=== PATIENT | male | born 1970 | race Caucasian/White ===

== ENCOUNTER 2018-09-21 06:08 | Emergency (ER) | payer SELFPAY ==
--- NOTE | 2018-09-21 06:36 | ER ---
Nurse's Notes [facility] Name: Tyler Carson Age: 48 yrs Sex: Male : 1970 Arrival Date: 09/21/2018 Time: 06:13 Bed 19 Private MD: Diagnosis: Dental pain Presentation: 09/21 06:21 Presenting complaint: Patient states: he has had a toothache to left upper jaw for 2 bb days but now it is swollen up into his face and jaw and is very painful pt states he has high blood pressure but does not take his medicine. Transition of care: patient was not received from another setting of care. Onset of symptoms was September 19, 2018. Risk Assessment: Do you want to hurt yourself or someone else? Patient reports no desire to harm self or others. Initial Sepsis Screen: Does the patient meet any 2 criteria? No. Patient's initial sepsis screen is negative. Does the patient have a suspected source of infection? No. Patient's initial sepsis screen is negative. Care prior to arrival: None. 06:21 Method Of Arrival: Ambulatory bb 06:21 Acuity: NISH 4 bb Historical: - Allergies: 06:24 No Known Allergies; bb - Home Meds: 06:24 does not take any [Active]; bb - PMHx: 06:24 Hypertension; Myocardial infarction; bb - PSHx: 06:24 Heart stents; bb - Immunization history:: Adult Immunizations up to date. - Social history:: Smoking status: Patient uses tobacco products, smokes one pack cigarettes per day. Patient uses alcohol, occasionally. - Ebola Screening: : No symptoms or risks identified at this time. Screenin:25 Abuse screen: Denies threats or abuse. Nutritional screening: No deficits noted. bb Tuberculosis screening: No symptoms or risk factors identified. Fall Risk None identified. Assessment: 06:25 General: Appears in no apparent distress. uncomfortable, Behavior is calm, cooperative. bb Pain: Complains of pain in left upper jaw Pain currently is 9 out of 10 on a pain scale. Pain began 2-3 days ago. Neuro: Level of Consciousness is awake, alert, obeys commands, Oriented to person, place, time, situation. Cardiovascular: No deficits noted. Respiratory: Airway is patent Respiratory effort is even, unlabored. GI: No signs and/or symptoms were reported involving the gastrointestinal system. EENT: Reports pain in left upper jaw. Derm: Skin is pink, warm \T\ dry. Musculoskeletal: Circulation, motion, and sensation intact. 06:54 Reassessment: Patient appears in no apparent distress at this time. Patient and/or tl2 family updated on plan of care and expected duration. Pain level reassessed. Patient is alert, oriented x 3, equal unlabored respirations, skin warm/dry/pink. pt verbalized understanding of discharge instructions, need for follow up and prescription usage. MACHINE WIPER aware of pt's elevated BP. No change in disposition. Vital Signs: 06:24 BP 192 / 111; Pulse 66; Resp 16 S; Temp 98.2(O); Pulse Ox 98% on R/A; Weight 70.31 kg bb (R); Height 5 ft. 6 in. (167.64 cm) (R); Pain 9/10; 06:24 Body Mass Index 25.02 (70.31 kg, 167.64 cm) ED Course: 06:13 Patient arrived in ED. 06:15 Mark Pelayo NP is PHCP. pm1 06:15 Jaret Frias MD is Attending Physician. pm1 06:23 Triage completed. bb 06:24 Arm band placed on Patient placed in an exam room, on a stretcher, on pulse oximetry. bb 06:25 Patient has correct armband on for positive identification. Bed in low position. Call bb light in reach. Side rails up X2. 06:54 Ping Coronado RN is Primary Nurse. tl2 06:54 No provider procedures requiring assistance completed. Patient did not have IV access tl2 during this emergency room visit. Administered Medications: No medications were administered Outcome: 06:35 Discharge ordered by . pm1 06:54 Discharged to home ambulatory. tl2 06:54 Condition: stable 06:54 Discharge instructions given to patient, Instructed on discharge instructions, follow up and referral plans. no driving heavy equipment, medication usage, Demonstrated understanding of instructions, follow-up care, medications, Prescriptions given X 2. 06:56 Patient left the ED. tl2 Signatures: Nydia Mccarthy Brenda, RN RN bb Mark Pelayo NP MACHINE WIPER pm1 Ping Coronado RN RN tl2
--- NOTE | 2018-09-21 06:36 | EDPHYS ---
Physician Documentation [facility] Name: Tyler Carson Age: 48 yrs Sex: Male : 1970 Arrival Date: 09/21/2018 Time: 06:13 Bed 19 Private MD: ED Physician Jaret Frias HPI: 09/21 06:34 This 48 yrs old Male presents to ER via Ambulatory with complaints of pm1 Toothache. 06:34 The patient presents with pain. The problem is located in the upper left lateral pm1 incisor. Onset: The symptoms/episode began/occurred 2 day(s) ago. Duration: The symptoms are continuous. Modifying factors: The symptoms are alleviated by nothing, the symptoms are aggravated by food. Associated signs and symptoms: Pertinent positives: swelling, Pertinent negatives: fever, inability to eat, nausea, vomiting. Severity of symptoms: in the emergency department the symptoms are actually worse. Patient with cracked tooth for multiple years, but he believes that he bit into some food wrong and it started his current tooth pain for the past 2 days. Patient with swelling to his left cheek that has improved with NSAID. Historical: - Allergies: 06:24 No Known Allergies; bb - Home Meds: 06:24 does not take any [Active]; bb - PMHx: 06:24 Hypertension; Myocardial infarction; bb - PSHx: 06:24 Heart stents; bb - Immunization history:: Adult Immunizations up to date. - Social history:: Smoking status: Patient uses tobacco products, smokes one pack cigarettes per day. Patient uses alcohol, occasionally. - Ebola Screening: : No symptoms or risks identified at this time. ROS: 06:34 Constitutional: Negative for fever, chills, and weight loss, Eyes: Negative for injury, pm1 pain, redness, and discharge. 06:34 Neck: Negative for injury, pain, and swelling, Cardiovascular: Negative for chest pain, palpitations, and edema, Respiratory: Negative for shortness of breath, cough, wheezing, and pleuritic chest pain, Abdomen/GI: Negative for abdominal pain, nausea, vomiting, diarrhea, and constipation, Back: Negative for injury and pain, : Negative for injury, bleeding, discharge, and swelling, MS/Extremity: Negative for injury and deformity, Skin: Negative for injury, rash, and discoloration, Neuro: Negative for headache, weakness, numbness, tingling, and seizure. 06:34 ENT: Positive for dental pain, Negative for drainage from ear(s), ear pain, sore throat, difficulty swallowing, difficulty handling secretions, hoarseness. Exam: 06:34 Constitutional: This is a well developed, well nourished patient who is awake, alert, pm1 and in no acute distress. Head/Face: Normocephalic, atraumatic. Eyes: Pupils equal round and reactive to light, extra-ocular motions intact. Lids and lashes normal. Conjunctiva and sclera are non-icteric and not injected. Cornea within normal limits. Periorbital areas with no swelling, redness, or edema. 06:34 Neck: Trachea midline, no thyromegaly or masses palpated, and no cervical lymphadenopathy. Supple, full range of motion without nuchal rigidity, or vertebral point tenderness. No Meningismus. Chest/axilla: Normal chest wall appearance and motion. Nontender with no deformity. No lesions are appreciated. Cardiovascular: Regular rate and rhythm with a normal S1 and S2. No gallops, murmurs, or rubs. Normal PMI, no JVD. No pulse deficits. Respiratory: Lungs have equal breath sounds bilaterally, clear to auscultation and percussion. No rales, rhonchi or wheezes noted. No increased work of breathing, no retractions or nasal flaring. Abdomen/GI: Soft, non-tender, with normal bowel sounds. No distension or tympany. No guarding or rebound. No evidence of tenderness throughout. Back: No spinal tenderness. No costovertebral tenderness. Full range of motion. Skin: Warm, dry with normal turgor. Normal color with no rashes, no lesions, and no evidence of cellulitis. MS/ Extremity: Pulses equal, no cyanosis. Neurovascular intact. Full, normal range of motion. 06:34 ENT: Mouth: Lips: normal, Oral mucosa: normal, Gums: normal with healthy appearance, abscess, is not appreciated, drooling, is not appreciated, No trismus, Dental exam: dental caries, that is moderate, diffusely, fractured teeth are noted, specifically the upper left lateral incisor (#10). 06:34 Neuro: Orientation: is normal, Motor: is normal, moves all fours. Vital Signs: 06:24 BP 192 / 111; Pulse 66; Resp 16 S; Temp 98.2(O); Pulse Ox 98% on R/A; Weight 70.31 kg bb (R); Height 5 ft. 6 in. (167.64 cm) (R); Pain 9/10; 06:24 Body Mass Index 25.02 (70.31 kg, 167.64 cm) bb MDM: 06:30 Patient medically screened. pm1 06:34 Data reviewed: vital signs. Data interpreted: Pulse oximetry: on room air is 98 %. pm1 Interpretation: normal. Counseling: I had a detailed discussion with the patient and/or guardian regarding: the historical points, exam findings, and any diagnostic results supporting the discharge/admit diagnosis, the need for outpatient follow up, for definitive care, a dentist, to return to the emergency department if symptoms worsen or persist or if there are any questions or concerns that arise at home. Special discussion: I have referred the patient to see his PCP for further evaluation of high blood pressure. 06:34 ED course: Patient drove here, will give the patient prescription for narcotics to take pm1 as needed for pain. Administered Medications: No medications were administered Disposition: 07:00 Co-signature as Attending Physician, Jaret Frias MD. rn Disposition: 09/21/18 06:35 Discharged to Home. Impression: Dental pain. - Condition is Stable. - Discharge Instructions: Dental Pain. - Prescriptions for Augmentin 875- 125 mg Oral Tablet - take 1 tablet by ORAL route every 12 hours for 10 days; 20 tablet. Tylenol- Codeine #3 300-30 mg Oral Tablet - take 2 tablets by ORAL route every 6 hours As needed; 20 tablet. - Medication Reconciliation Form, Thank You Letter, Antibiotic Education, Prescription Opioid Use form. - Follow up: Emergency Department; When: As needed; Reason: Worsening of condition. Follow up: Private Physician; When: 2 - 3 days; Reason: Recheck today's complaints, Continuance of care, Re-evaluation by your physician. - Problem is new. - Symptoms have improved. Signatures: Frida Le RN RN Jaret Lawson MD MD rn Marinas, Patrick, CIERA TITLE MANAGER pm1 Ping Coronado RN RN tl2 Corrections: (The following items were deleted from the chart) 06:56 06:35 09/21/2018 06:35 Discharged to Home. Impression: Dental pain. Condition is tl2 Stable. Forms are Medication Reconciliation Form, Thank You Letter, Antibiotic Education, Prescription Opioid Use. Follow up: Emergency Department; When: As needed; Reason: Worsening of condition. Follow up: Private Physician; When: 2 - 3 days; Reason: Recheck today's complaints, Continuance of care, Re-evaluation by your physician. Problem is new. Symptoms have improved. pm1
== END 2018-09-21 06:56 | disposition home or self-care (01) ==
LOC: ER 06:08
DX: K08.89 Other specified disorders of teeth and supporting structures (principal)
CPT/HCPCS: 99283

== ENCOUNTER 2020-01-08 01:42 | Inpatient (IN) | payer SELFPAY ==
--- OUTSIDE RECORDS SUMMARY | 2020-01-08 01:45 | XMS REPORT | Continuity of Care Document ---
:[address] [facility] t Address [address] [place] [address] Care Team Providers Name Role Phone Meron GUTIERREZ S Attending Clinician Problems This patient has no known problems. Allergies, Adverse Reactions, Alerts This patient has no known allergies or adverse reactions. Medications This patient has no known medications. Procedures This patient has no known procedures. Encounters Start End Encounter Admission Attending Care Care Encounter Source Date/Time Date/Time Type Type Clinicians Facility Department ID 2020-01-03 2020-01-04 Emergency [facility]on [facility] [id number] 21:11:00 02:40:00 Dragan Peralta [id number] [place] [id number] [place] [id number] Results This patient has no known results.
--- OUTSIDE RECORDS SUMMARY | 2020-01-08 01:46 | XMS REPORT | Summary of Care ---
:1970 Author Organization [facility] Address [address] [place] [id number] Care Team Providers Name Role Phone Pcp, Does Not Have A Primary Care Provider Reason for Referral Radiology Services (STAT) Status Reason Specialty Diagnoses / Referred By Referred To Procedures Contact Contact New Request Diagnostic Diagnoses Chest pain, unspecified type Yarima, [place] Radiology Procedures XR CHEST 1 MD Darrick [address] [place] [phone] Reason for Visit Reason Comments Numbness left arm Chest Pain discomfort Auth/Cert Status Reason Specialty Diagnoses / Referred By Referred To Procedures Contact Contact Emergency Medicine [facility] ergency Dept [address] [place] [address] Fax: Encounter Details Date Type Department Care Team Description 01/03/2020 - Emergency ADC-Emergency Yarima, [place] Chest pain, unspecified type (Primary Dx); 01/04/2020 Department MD Darrick Noncompliance with medication regimen; [address] [place] [address] Medication refill; Drive [id number] [place] [address] [phone] Allergies No Known Allergiesdocumented as of this encounter (statuses as of 01/04/2020) Medications Medication Sig Dispensed Refills Start Date End Date Status lisinopril 5 mg Take 1 tablet by 14 tablet 0 01/04/2020 Active tabletIndications: mouth daily. Medication refill atorvastatin 40 mg Take 1 tablet by 14 tablet 0 01/04/2020 Active tabletIndications: mouth at bedtime. Medication refill clopidogreL (PLAVIX) 75 Take 1 tablet by 14 tablet 0 0 Active mg tabletIndications: mouth daily. Medication refill carvediloL 6.25 mg Take 1 tablet by 28 tablet 0 01/04/2020 Active tabletIndications: mouth 2 (two) Medication refill times daily with meals. documented as of this encounter (statuses as of 01/04/2020) Active Problems No known active problemsdocumented as of this encounter (statuses as of 01/04/2020) Social History Tobacco Use Types Packs/Day Years Used Date Never Assessed Sex Assigned at Date Recorded Not on file COVID-19 Exposure Response Date Recorded In the last month, have you been in contact with No / Unsure 01/03/2020 9:18 PM CDT someone who was confirmed or suspected to have Coronavirus / COVID-19? documented as of this encounter Last Filed Vital Signs Vital Sign Reading Time Taken Comments Blood Pressure 150/108 01/04/2020 2:35 AM CDT Pulse 61 01/04/2020 2:35 AM CDT Temperature 36.7 C (98.1 F) 01/03/2020 9:22 PM CDT Respiratory Rate 16 01/04/2020 2:35 AM CDT Oxygen Saturation 95% 01/04/2020 2:35 AM CDT Inhaled Oxygen Concentration - - Weight 81.6 kg (180 lb) 01/03/2020 9:22 PM CDT Height 167.6 cm (5' 6") 01/03/2020 9:22 PM CDT Body Mass Index 29.05 01/03/2020 9:22 PM CDT documented in this encounter ED Notes Amelia Weiner, EDEL - 01/03/2020 9:18 PM CDTCC: patient states he has been off his heart medication for 1 1/2 years. He states he had an [place] 2017and had [address] He states that his left arm feels numb. He states that his chest isn't necessarily pain more pressure and heavy. PMHx: HTN, [place], PSH: cardiac stents x4 MEDS: not taking medications at this time, does take ASA 324 Q DAY Tetanus: UTD Awake, alert, oriented, resp reg unlabored, skin warm and dry, color appropriate for race, moves allext without difficulty, amb with no assist Appears in no distress Dragan Nguyễn MD - 01/03/2020 9:03 PM CDT EMERGENCY DEPARTMENT ENCOUNTER Formerly [facility] Patient Name: Tyler Carson Date of : 1970 49 year old Exam Room:OK4/OK4 Primary Care Physician: PATIENT DOES NOT HAVE A PCP Pre- Hospital Patient Escorted by: Self [9] Mode of Arrival: Personal means [1] EMS Treatment Prior to ED Arrival: STREET WORKER treatment: Medication (comment);Aspirin STREET WORKER treatment comments: 324 mg at 1930 Chief Complaint Chief Complaint Patient presents with Numbness left arm Chest Pain discomfort HPI Tyler Carson is a 49 year old male with numerous medical conditions as listed below who presented to the ED for evaluation of numbness to chest bilateral arms and legs . Numbness is intermittent and has been ongoing for about 8 months. Symptoms became severe today. Symptoms appear to occur on Sundays when he isn't working and gets worse when he gets to bed. Pt has feeling of impending doom. Pt has had stents placed in December 2016. Pt has not taken any of his five different his blood pressure medications in about one year as "the medications make him feel weird". He does not recall the names of rx. Pt took ASA prior to arrival in the ED Past Medical History / Immunizations HTN HLD CAD Tetanus received in last 5 years: Yes Childhood immunizations: Up-to-date Past Surgical History Cardiac Stent X4 in December 2016 Allergies No Known Allergies Social History Substance & Sexual Activity No substance use or sexual activity history on file. Review of Systems Review of Systems Constitutional: Negative. Negative for chills, diaphoresis, fatigue, fever and unexpected weight change. HENT: Negative. Eyes: Negative. Respiratory: Positive for chest tightness. Breasts: Negative. Cardiovascular: Positive for chest pain. Negative for palpitations and leg swelling. Gastrointestinal: Negative. Genitourinary: Negative. Musculoskeletal: Negative. Skin: Negative. Neurological: Positive for numbness. Negative for dizziness, tremors, seizures, syncope, facial asymmetry, speech difficulty, weakness, light-headedness and headaches. Psychiatric/Behavioral: The patient is nervous/anxious. Endocrine: Endocrine negative Physical Exam BP (!) 154/100 | Pulse 55 | Temp 36.7 C (98.1 F) (Oral) | Resp 18 | Ht 1.676 m (5' 6") | Wt81.6 kg (180 lb) | SpO2 96% | BMI 29.05 kg/m Physical Exam Vitals signs and nursing note reviewed. Constitutional: General: He is not in acute distress. Appearance: He is well-developed. He is not diaphoretic. HENT: Head: Normocephalic and atraumatic. Nose: Nose normal. Mouth/Throat: Mouth: Mucous membranes are moist. Pharynx: No oropharyngeal exudate or posterior oropharyngeal erythema. Eyes: General: Right eye: No discharge. Left eye: No discharge. Conjunctiva/sclera: Conjunctivae normal. Pupils: Pupils are equal, round, and reactive to light. Neck: Musculoskeletal: Normal range of motion and neck supple. No neck rigidity. Cardiovascular: Rate and Rhythm: Normal rate and regular rhythm. Heart sounds: Normal heart sounds. No murmur. Pulmonary: Effort: Pulmonary effort is normal. Breath sounds: Normal breath sounds. No stridor. No rhonchi. Chest: Chest wall: No tenderness. Abdominal: General: Bowel sounds are normal. There is no distension. Palpations: Abdomen is soft. There is no mass. Tenderness: There is no abdominal tenderness. There is no rebound. Hernia: No hernia is present. Musculoskeletal: Normal range of motion. General: No tenderness. Skin: General: Skin is warm and dry. Capillary Refill: Capillary refill takes less than 2 seconds. Coloration: Skin is not jaundiced. Neurological: General: No focal deficit present. Mental Status: He is alert and oriented to person, place, and time. Cranial Nerves: No cranial nerve deficit. Sensory: No sensory deficit. Motor: No weakness. Coordination: Coordination normal. Gait: Gait normal. Deep Tendon Reflexes: Reflexes normal. Psychiatric: Mood and Affect: Mood normal. Behavior: Behavior normal. Thought Content: Thought content normal. Judgment: Judgment normal. Labs Recent Results (from the past 24 hour(s)) TROPONIN I Collection Time: 01/03/20 9:27 PM Result Value Ref Range TROPONIN I <0.012 <=0.034 ng/mL aPTT Collection Time: 01/03/20 9:27 PM Result Value Ref Range APTT Patient 27 23 - 38 Seconds PROTHROMBIN TIME / INR Collection Time: 01/03/20 9:27 PM Result Value Ref Range PROTIME PATIENT 12.3 12.0 - 14.7 Seconds INR 1.0 COMP. METABOLIC PANEL (01691) Collection Time: 01/03/20 9:27 PM Result Value Ref Range NA 137 135 - 145 mmol/L K 3.9 3.5 - 5.0 mmol/L CL 106 98 - 108 mmol/L CO2 TOTAL 26 23 - 31 mmol/L AGAP 5 2 - 16 BUN 15 7 - 23 mg/dL GLUCOSE 145 (H) 70 - 110 mg/dL CREATININE 1.07 0.60 - 1.25 mg/dL TOTAL BILI 0.2 0.1 - 1.1 mg/dL CALCIUM 9.6 8.6 - 10.6 mg/dL T PROTEIN 7.3 6.3 - 8.2 g/dL ALBUMIN 3.8 3.5 - 5.0 g/dL ALK PHOS 52 34 - 122 U/L ALTv 32 5 - 50 U/L AST(SGOT) 23 13 - 40 U/L eGFR Calculation (Non-) 73.2 mL/min/1.73m2 eGFR Calculation () 88.7 mL/min/1.73m2 LIPASE, SERUM Collection Time: 01/03/20 9:27 PM Result Value Ref Range LIPASE 110 0 - 220 U/L CBC WITH DIFF Collection Time: 01/03/20 9:27 PM Result Value Ref Range WBC 14.93 (H) 4.20 - 10.70 10*3/L RBC 5.04 4.26 - 5.52 10*6/L HGB 15.4 12.2 - 16.4 g/dL HCT 45.2 38.4 - 49.3 % MCV 89.7 81.7 - 95.6 fL MCH 30.6 26.1 - 32.7 pg MCHC 34.1 31.2 - 35.0 g/dL RDW-SD 40.0 38.5 - 51.6 fL RDW-CV 12.2 12.1 - 15.4 % PLT 266 150 - 328 10*3/L MPV 10.4 9.8 - 13.0 fL NRBC/100 WBC 0.0 0.0 - 10.0 /100 WBCs NRBC x10^3 <0.01 10*3/L GRAN MAT (NEUT) % 57.1 % IMM GRAN % 0.50 % LYMPH % 28.8 % MONO % 9.4 % EOS % 3.4 % BASO % 0.8 % GRAN MAT x10^3(ANC) 8.52 (H) 1.99 - 6.95 10*3/uL IMM GRAN x10^3 0.07 (H) 0.00 - 0.06 10*3/uL LYMPH x10^3 4.30 (H) 1.09 - 3.23 10*3/uL MONO x10^3 1.41 (H) 0.36 - 1.02 10*3/uL EOS x10^3 0.51 0.06 - 0.53 10*3/uL BASO x10^3 0.12 (H) 0.01 - 0.09 10*3/uL TROPONIN I Collection Time: 01/03/20 11:53 PM Result Value Ref Range TROPONIN I 0.015 <=0.034 ng/mL Imaging Hospital Encounter on 01/03/20 XR CHEST 1 VW Narrative EXAM: XR CHEST 1 VW HISTORY: cp COMPARISON: None FINDINGS: The lungs are clear without evidence of consolidation, pleural effusion or pneumothorax. The cardiomediastinal silhouette is normal. No acute osseous abnormality is identified. Impression No acute cardiopulmonary abnormality. Preliminary Report Dictated by Resident: Magen Chirinos I, Aarti Anderson MD., have reviewed this study and agree with the above report. Orders and Treatments Orders Placed This Encounter Procedures XR CHEST 1 VW TROPONIN I aPTT PROTHROMBIN TIME / INR COMP. METABOLIC PANEL (45937) LIPASE, SERUM CBC WITH DIFF TROPONIN I O2 Per Protocol Orders Placed This Encounter Medications lisinopril 5 mg tablet atorvastatin 40 mg tablet clopidogreL (PLAVIX) 75 mg tablet carvediloL 6.25 mg tablet Procedures See ED Procedure Note Notes & MDM Patient was evaluated for an emergency medical condition related to Numbness (left arm) and Chest Pain (discomfort) . Differential diagnoses considered by presenting complaints but not limited to: Chest Pain (acute) Myocardial Infarction (acute) Pericarditis Pleurisy Pleuritis Pneumomediastinum Pneumonia Pneumothorax Pulmonary Edema Covid -19 Infection. ED Course as of Jan [address] [facility] Jan 04, 2020222 Discussed work-up with patient. Recommended admission for further evaluation and management butpatient DECLINED at this time and will sign out AMA. Pt is Alert Awake Oriented X 4 and has full capacity to make own medical decisions [WY] ED Course User Index [WY] Dragan Chance MD Labs:were ordered, and resulted, any relevant abnormalities were considered. Imaging:Ordered, and resulted, any relevant abnormalities were considered. IV fluids: not indicated Procedures:were not performed. EKG: interpreted by me Normal axis, Normal intervals, Normal P-waves, Normal QRS complex, Normal sinus rhythm, Normal ST / T waves and Normal 12 - lead EKG Rate 82 Comparison with prior EKG: none available Rhythm Strip Interpretation: Normal Sinus Rhythm Pulse Oximetry room air 97% = Normal Assessment: History, physical exam findings, results of visit, differential diagnosis, medication regimens and plan of future care have been considered. Additional MDM may be found in the ED course. Differential diagnosis considered and final disposition made based on information gathered during evaluation and may not be completely ruled out or specifically listed. Vital signs were rechecked before final disposition and determined to be stable. Diagnosis ICD-10-CM ICD-9-CM 1. Chest pain, unspecified type R07.9 786.50 2. Noncompliance with medication regimen Z91.14 V15.81 3. Medication refill Z76.0 V68.1 4. Anxious mood F41.9 300.00 Disposition & Follow Up ED Disposition ED Disposition Condition Comment AMA Stable Patient's Medications START taking these medications ATORVASTATIN 40 MG TABLET Take 1 tablet by mouth at bedtime. CARVEDILOL 6.25 MG TABLET Take 1 tablet by mouth 2 (two) times daily with meals. CLOPIDOGREL (PLAVIX) 75 MG TABLET Take 1 tablet by mouth daily. LISINOPRIL 5 MG TABLET Take 1 tablet by mouth daily. CONTINUE taking these medications which have NOT CHANGED No medications on file START taking Modified Medications as Prescribed No medications on file STOP taking these medications No medications on file Dragan Chance MD 01/03/2020 10:50 PM ACTIVE COVID-19 PANDEMIC. documented in this encounter Miscellaneous Notes ED Nurse Note - Susannah Mireles RN - 01/04/2020 2:35 AM CDTPt leaving AMA, encouraged hydration. Prescriptions provided. Provided information on [facility] for management of chronic diseases. Pt verbalized understanding of instructions, pt awake alert oriented, resp reg unlabored, skin w/d, color appropriate for race, moves all ext well, pt encouraged to follow up with PCP. Advised to seek medical attention for new/prolonged/worsening of symptoms. Symptoms addressed to extent of patient allowance. No adverse reaction to meds given in ER noted upon discharge. PIV d'cd, dressing to site, catheter intact. Pt leaving amb with steady gait, in no apparent distress. documented in this encounter Plan of Treatment Health Maintenance Due Date Last Done Comments Depression Screening 1981 DTaP,Tdap,and Td Vaccines (1 - 1988 Tdap) COLON CANCER SCREENING ANNUAL 09/09/2019 FIT/FOBT COLON CANCER SCREENING FIT DNA 09/09/2019 EVERY 3 YEARS COLON CANCER SCREENING 09/09/2019 SIGMOIDOSCOPY EVERY 5 YEARS COLONOSCOPY 09/09/2019 Colorectal Cancer Screening 09/09/2019 Zoster Recombinant Vaccine 09/09/2019 (SHINGRIX) (1 of 2) INFLUENZA VACCINE (#1) 2020 PNEUMOCOCCAL 0-64 YEARS COMBINED Aged Out No longer eligible based on SERIES patient's age to complete this topic documented as of this encounter Procedures Procedure Name Priority Date/Time Associated Diagnosis Comme nts TROPONIN I STAT 01/03/2020 11:53 Chest pain, Results for this PM CDT unspecified type procedure a re in the results section. XR CHEST 1 VW STAT 01/03/2020 9:41 Chest pain, Results fo r this PM CDT unspecified type procedure a re in the results section. ACTIVATED PARTIAL STAT 01/03/2020 9:27 Chest pain, Result s for this THRMPLAS RAZIA PM CDT unspecified type procedure a re in the results section. PROTHROMBIN TIME / STAT 01/03/2020 9:27 Chest pain, Resul ts for this INR PM CDT unspecified type procedure a re in the results section. CBC WITH DIFF STAT 01/03/2020 9:27 Chest pain, Results fo r this PM CDT unspecified type procedure a re in the results section. COMP. METABOLIC STAT 01/03/2020 9:27 Chest pain, Results for this PANEL (08655) PM CDT unspecified type procedure are in the results section. TROPONIN I STAT 01/03/2020 9:27 Chest pain, Results for this PM CDT unspecified type procedure a re in the results section. LIPASE STAT 01/03/2020 9:27 Chest pain, Results for this PM CDT unspecified type procedure a re in the results section. EKG-12 LEAD STAT 01/03/2020 9:25 PM CDT NOTICE OF PRIVACY Routine 01/03/2020 9:05 PRACTICES PM CDT documented in this encounter Results TROPONIN I (01/03/2020 11:53 PM CDT) Pathologist Sig nature TROPONIN I 0.015 <=0.034 ng/mL [facility] Specimen Blood - VENOUS Narrative Performed At Equal or Less than 0.034 ng/ml---Normal [facility] Note: Cardiac troponin begins to rise 3-4 hours after the onset of ischemia. Repeat in 4-6 hours if the sample was drawn within 3-4 hours of the onset of the symptom and found normal. Between 0.035 and 0.120 ng/mL--- Borderline. Questionable myocardial injury or necros is Note: Serial measurement may be necessary to confirm or exclude the diagnosis of myocardial injury or necrosis; Clinical correlation (symptoms, EKGs, imaging studies, and others) required; Repeat in 4-6 hours if clinically indicated. Equal or Higher than 0.121 ng/mL---Abnormal. Myocardial Injury or Necrosis Likely Biotin has been reported to cause a negative bias, interpret results relative to patient's use of biotin. Performing Organization Address City/State/Zipcode Phone Number [facility] CLIA: [id number] [place] [address] XR CHEST 1 VW (01/03/2020 9:41 PM CDT) Specimen Impressions Performed At PACS/VR/DOSE No acute cardiopulmonary abnormality. Preliminary Report Dictated by Resident: Magen Chirinos I, Aarti Anderson MD., have reviewed this study and agree with the above report. Narrative Performed At PACS/VR/DOSE EXAM: XR CHEST 1 VW HISTORY: cp COMPARISON: None FINDINGS: The lungs are clear without evidence of consolidation, pleural effusion or pneumothorax. The cardiomediastinal silhouette is norm al. No acute osseous abnormality is identifi ed. Procedure Note [facility], Radiant Results Inft User - 2019 12:37 AM CDT EXAM: XR CHEST 1 VW HISTORY: cp COMPARISON: None FINDINGS: The lungs are clear without evidence of consolidation, pleural effusion or pneumothorax. The cardiomediastinal silhouette is norm al. No acute osseous abnormality is identifi ed. IMPRESSION No acute cardiopulmonary abnormality. Preliminary Report Dictated by Resident: Magen Chirinos I, Aarti Anderson MD., have reviewed this study and agree with the above report. Performing Organization Address City/State/Zipcode Phone Number PACS/VR/DOSE CBC WITH DIFF (01/03/2020 9:27 PM CDT) Pathologist Sig nature WBC 14.93 (H) 4.20 - 10.70 [facility] 10*3/L [facility] RBC 5.04 4.26 - 5.52 [facility] 10*6/L HOSPITAL LAB[facility]ORY HGB 15.4 12.2 - 16.4 [facility] g/dL [facility] HCT 45.2 38.4 - 49.3 % [facility] MCV 89.7 81.7 - 95.6 fL [facility] MCH 30.6 26.1 - 32.7 pg [facility] MCHC 34.1 31.2 - 35.0 [facility] g/dL [facility] RDW-SD 40.0 38.5 - 51.6 fL [facility] RDW-CV 12.2 12.1 - 15.4 % [facility] PLT 266 150 - 328 [facility] 10*3/L [facility] MPV 10.4 9.8 - 13.0 fL [facility] NRBC/100 WBC 0.0 0.0 - 10.0 /100 [facility] WBCs [facility] NRBC x10^3 <0.01 10*3/L [facility] GRAN MAT (NEUT) % 57.1 % [facility] IMM GRAN % 0.50 % [facility] LYMPH % 28.8 % [facility] MONO % 9.4 % [facility] EOS % 3.4 % [facility] BASO % 0.8 % [facility] GRAN MAT x10^3(ANC) 8.52 (H) 1.99 - 6.95 [facility] 10*3/uL [facility] IMM GRAN x10^3 0.07 (H) 0.00 - 0.06 [facility] 10*3/uL HOSPITAL [facility] LYMPH x10^3 4.30 (H) 1.09 - 3.23 [facility] 10*3/uL [facility] MONO x10^3 1.41 (H) 0.36 - 1.02 [facility] 10*3/uL [facility] EOS x10^3 0.51 0.06 - 0.53 [facility] 10*3/uL [facility] BASO x10^3 0.12 (H) 0.01 - 0.09 [facility] 10*3/uL [facility] Specimen Blood - VENOUS Performing Organization Address [facility] Phone Number [facility] CLIA: [id number] [place] [address] [place] [address] LIPASE, SERUM (01/03/2020 9:27 PM CDT) Pathologist Sig nature LIPASE 110 0 - 220 U/L [facility] Specimen Blood - VENOUS Performing Organization Address [facility] Hospital[facility] Phone Number [facility] CLIA: [id number] [place] [address] [place] [address] COMP. METABOLIC PANEL ([id number]) (01/03/2020 9:27 PM CDT) Pathologist Sig nature NA 137 135 - 145 [facility] mmol/L [facility] K 3.9 3.5 - 5.0 [facility] mmol/L [facility] CL 106 98 - 108 mmol/L [facility] CO2 TOTAL 26 23 - 31 mmol/L [facility] AGAP 5 2 - 16 [facility] BUN 15 7 - 23 mg/dL [facility] GLUCOSE 145 (H) 70 - 110 mg/dL [facility] CREATININE 1.07 0.60 - 1.25 [facility] mg/dL [facility] TOTAL BILI 0.2 0.1 - 1.1 mg/dL [facility] CALCIUM 9.6 8.6 - 10.6 [facility] mg/dL [facility] T PROTEIN 7.3 6.3 - 8.2 g/dL [facility] ALBUMIN 3.8 3.5 - 5.0 g/dL [facility] ALK PHOS 52 34 - 122 U/L [facility] ALTv 32 5 - 50 U/L [facility] AST(SGOT) 23 13 - 40 U/L [facility] eGFR Calculation 73.2 mL/min/1.73m2 [facility] ([facility] LABORATORY Citizen Of [place]) eGFR Calculation 88.7 mL/min/1.73m2 [facility] () [facility] Specimen Blood - VENOUS Narrative Performed At Association of Glomerular Filtration Rate (GFR) [facility] and Staging of Kidney Disease* + + +- + | GFR (mL/min/1.73 m2) | With Kidney Damage | Without Kidney Damage + + +- + | >90 | Stage one | Normal + + +- + | 60-89 | Stage two | Decreased GFR + + +- + | 30-59 | Stage three | Stage three + + +- + | 15-29 | Stage four | Stage four + + +- + | <15 (or dialysis) | Stage five | Stage five + + +- + *Each stage assumes the associated GFR level has been in effect for at least three months. Stages 1 to 5, with or without kidney disease, indicate chronic kidney disease. Notes: Determination of stages one and two (with eGFR >59mL/min/1.73 m2) requires estimation of kidney damage for at least three months as defined by structural or functional abnormalities of the kidney, manifested by either: Pathological abnormalities or Markers of kidney damage (including abnormalities in the composition of the blood or urine or abnormalities in imaging tests). Performing Organization Address City/State/Zipcode Phone Number [facility] CLIA: [id number] [place] [address] PROTHROMBIN TIME / INR (01/03/2020 9:27 PM CDT) PROTIME PATIENT 12.3 12.0 - 14.7 [facility] LABORATORY INR 1.0Comment: Normal [facility] INR <1.1; Warfarin [facility] Therapeutic range LABORATORY 2.0 to 3.0 or 2.5 to 3.5, depending upon the indications. Specimen Blood - VENOUS Performing Organization Address City/[facility]/Zipcode Phone Number [facility] CLIA: [id number] [place] [address] aPTT (01/03/2020 9:27 PM CDT) Pathologist Sig nature APTT Patient 27 23 - 38 Seconds [facility] Specimen Blood - VENOUS Narrative Performed At [facility] patient population mean normal value [facility] for aPTT is 30 seconds. Performing Organization Address [facility] Phone Number [facility] CLIA: [id number] [place] [address] TROPONIN I (01/03/2020 9:27 PM CDT) Pathologist Sig nature TROPONIN I <0.012 <=0.034 ng/mL [facility] Specimen Blood - VENOUS Narrative Performed At Equal or Less than 0.034 ng/ml---Normal [facility] Note: Cardiac troponin begins to rise 3-4 hours after the onset of ischemia. Repeat in 4-6 hours if the sample was drawn within 3-4 hours of the onset of the symptom and found normal. Between 0.035 and 0.120 ng/mL--- Borderline. Questionable myocardial injury or necros is Note: Serial measurement may be necessary to confirm or exclude the diagnosis of myocardial injury or necrosis; Clinical correlation (symptoms, EKGs, imaging studies, and others) required; Repeat in 4-6 hours if clinically indicated. Equal or Higher than 0.121 ng/mL---Abnormal. Myocardial Injury or Necrosis Likely Biotin has been reported to cause a negative bias, interpret results relative to patient's use of biotin. Performing Organization Address [facility]/Zipcode Phone Number [facility] CLIA: [id number] [place] [address] documented in this encounter Visit Diagnoses Diagnosis Chest pain, unspecified type - Primary Noncompliance with medication regimen Personal history of noncompliance with m edical treatment, presenting hazards to health Medication refill Issue of repeat prescriptions Anxious mood Anxiety state, unspecified documented in this encounter
[2020-01-08 02:09] LABS: Protime INR 0.97
[2020-01-08 02:12] LABS: Absolute Lymphocytes (CBC) 4.1 K/uL (0.7-4.9); Basophils % 1.1 % (0-1.3); Hematocrit 43.5 % (39.6-49.0); Lymphocytes % 32.5 % (15.3-44.8); MPV 9.1 fL (7.6-11.3); RBC Red Blood Cell Count 4.82 M/uL (4.33-5.43)
[2020-01-08 02:23] LABS: ALT/SGPT 32 U/L (12-78); AST/SGOT 12 U/L (15-37); Albumin 2.9 g/dL (3.4-5.0); Alkaline Phosphatase 46 U/L (45-117); BUN Blood Urea Nitrogen 17 mg/dL (7-18); Bicarbonate 22 mmol/L (21-32); Bilirubin Direct < 0.1 mg/dL (0-0.2); Bilirubin Total 0.2 mg/dL (0.2-1.0); Glucose Level 108 mg/dL (74-106); Lipase 158 U/L (73-393); NT PRO-BNP 34 pg/mL (<125); Potassium 4.1 mmol/L (3.5-5.1); Protein, Total 6.7 g/dL (6.4-8.2); Sodium Level 143 mmol/L (136-145); Troponin (Emerg Dept Use Only) < 0.02 ng/mL (0.0-0.045)
[2020-01-08] MEDS ORDERED: NA CHLORIDE 0.9% 1,000 ML ONE (02:28)
[2020-01-08] MEDS ORDERED: ASPIRIN 81 MG CHEWABLE TABLET ONE (02:28)
--- NOTE | 2020-01-08 02:42 | ER ---
Nurse's Notes [facility] Name: Tyler Carson Age: 49 yrs Sex: Male : 1970 Arrival Date: 01/08/2020 Time: 01:46 Bed 4 Private MD: Diagnosis: Other chest pain;Angina pectoris;Essential (primary) hypertension;Tobacco abuse counseling;Tobacco use Presentation: 01/07 01:48 Chief complaint: EMS states: Reports pt was complaining of chest pain that started an ea hour ago 12/07 pain. Pt reports the pain has been going on for a few days, reports he was seen the day before at [facility]. Pt reports he has not taken his prescribed medications for about a year. EMS gave nitro x 1 reported pt was hypotensive 90/50. Coronavirus screen: At this time, the client does not indicate any symptoms associated with coronavirus-19. Ebola Screen: No symptoms or risks identified at this time. 01:48 Method Of Arrival: EMS: [facility] 01:50 Initial Sepsis Screen: Does the patient meet any 2 criteria? No. Patient's initial ea sepsis screen is negative. Does the patient have a suspected source of infection? No. Patient's initial sepsis screen is negative. Risk Assessment: Do you want to hurt yourself or someone else? Patient reports no desire to harm self or others. Onset of symptoms was January 08, 2020. 01:50 Acuity: NISH 3 ea Historical: - Allergies: 01:56 No Known Allergies; ea - Home Meds: 01:55 does not take any [Active]; ea - PMHx: 01:55 Myocardial infarction; Hypertension; ea - PSHx: 01:55 Heart stents; ea - Immunization history:: Adult Immunizations up to date. - Social history:: Smoking status: Patient reports the use of cigarette tobacco products, smokes one pack cigarettes per day. - Family history:: not pertinent. Screenin:54 Abuse screen: Denies threats or abuse. Nutritional screening: No deficits noted. ea Tuberculosis screening: No symptoms or risk factors identified. Fall Risk IV access (20 points). Assessment: 02:01 General: Appears uncomfortable, Behavior is restless. Pain: Complains of pain in ea anterior aspect of left upper chest Pain does not radiate. Pain began 2-3 days ago. Neuro: Level of Consciousness is awake, alert, obeys commands, Oriented to person, place, time. Cardiovascular: Patient's skin is warm and dry. Respiratory: Airway is patent Respiratory effort is even, unlabored, Respiratory pattern is regular, symmetrical. Derm: Skin is pink, warm \T\ dry. 03:28 Reassessment: Patient and/or family updated on plan of care and expected duration. Pain ea level reassessed. Patient is alert, oriented x 3, equal unlabored respirations, skin warm/dry/pink. 04:50 Reassessment: Patient and/or family updated on plan of care and expected duration. Pain ea level reassessed. Patient is alert, oriented x 3, equal unlabored respirations, skin warm/dry/pink. Vital Signs: 01:50 BP 149 / 109; Pulse 58; Resp 20; Pulse Ox 98% ; Weight 79.38 kg; Height 5 ft. 6 in. ea (167.64 cm); 02:03 BP 160 / 103; Pulse 54; Resp 18; Temp 97.8; Pulse Ox 99% ; ea 03:00 BP 181 / 116; Pulse 56; Resp 18; Pulse Ox 99% ; ea 04:00 BP 170 / 93; Pulse 53; Resp 18; Pulse Ox 98% on R/A; ea 05:00 BP 169 / 104; Pulse 59; Resp 18; Temp 97.9; Pulse Ox 98% on R/A; mg2 01:50 Body Mass Index 28.25 (79.38 kg, 167.64 cm) ED Course: 01:46 Patient arrived in ED. ea 01:48 Amanda Rojo, RN is Primary Nurse. ea 01:54 Triage completed. ea 01:54 Patient has correct armband on for positive identification. Bed in low position. Call ea light in reach. Side rails up X2. classroom monitor on. Pulse ox on. NIBP on. 01:54 Patient maintains SpO2 saturation greater than 95% on room air. ea 01:55 Arm band placed on right wrist. Patient placed in an exam room, on a stretcher, on ea classroom monitor, on pulse oximetry. 01:55 Troponin (emerg Dept Use Only) Sent. ds4 01:55 PT-INR Sent. ds4 01:55 NT PRO-BNP Sent. ds4 01:55 Magnesium Sent. ds4 01:55 LFT's Sent. ds4 01:55 CBC with Diff Sent. ds4 01:55 Basic Metabolic Panel Sent. ds4 02:02 Maintain EMS IV. Dressing intact. Good blood return noted. Site clean \T\ dry. Gauge \T\ ea site: 20 G left AC . 02:06 Epifanio Pichardo MD is Attending Physician. desi 02:40 Isak Zavala is Hospitalizing Provider. desi 04:32 No provider procedures requiring assistance completed. Patient admitted, IV remains in ea place. Administered Medications: 02:22 Drug: NS 0.9% 1000 ml Route: IV; Rate: 125 ml/hr; Site: left hand; mg2 04:57 Follow up: Response: No adverse reaction; IV Status: Completed infusion; Infusion ea continued upon admission 02:37 Drug: morphine 4 mg {Note: RASS 1.} Route: IVP; Site: left antecubital; ea 03:00 Follow up: Response: No adverse reaction; RASS: Alert and Calm (0) ea 02:37 Drug: Zofran (Ondansetron) 4 mg Route: IVP; Site: left antecubital; ea 03:00 Follow up: Response: No adverse reaction ea 02:39 Not Given (pt reports he took 5 aspirin at 2200): Aspirin Chewable Tablet 324 mg PO ea once; 81 mg tablets x 4 03:03 Drug: Pepcid 20 mg Route: IVP; Site: left antecubital; ea 03:29 Follow up: Response: No adverse reaction ea 03:03 Drug: PlaVIX 300 mg Route: PO; ea 03:29 Follow up: Response: No adverse reaction ea 03:06 Drug: Heparin (ND Drip) 12 units/kg/hr - (HEParin 37489 units, D5W 500 ml) ea {Co-Signature: mg2 (Shay Cronin RN).} Route: IV; Rate: calculated rate; Site: left antecubital; 03:57 Follow up: IV Status: Infusion continued upon admission ea 03:07 Drug: Heparin (ND-Bolus No thrombolytic) - HEParin 60 units/kg {Co-Signature: mg2 ea (Shay Cronin RN).} Route: IVP; Site: right antecubital; 03:57 Follow up: Response: No adverse reaction ea 03:26 Drug: hydrALAZINE 10 mg Route: PO; ea 03:57 Follow up: Response: No adverse reaction ea 03:26 Drug: hydrALAZINE 5 mg Route: IV; Rate: per protocol; Site: left antecubital; ea 03:58 Follow up: Response: No adverse reaction; IV Status: Completed infusion ea 03:37 Not Given (Other Intervention Used): Zocor 40 mg PO once ea 05:00 Not Given (to be given in the floor- out of stock in ed): Lipitor 40 mg PO once mg2 Outcome: 02:41 Decision to Hospitalize by Provider. desi 04:32 Instructed on the need for admit, Demonstrated understanding of instructions. helga 04:56 Admitted to Med/surg accompanied by tech, via wheelchair, room 224, with chart, Report mg2 called to DEEL Renae 04:56 Condition: stable 05:17 Patient left the ED. mg2 Signatures: Epifanio Pichardo MD MD cha Swanson, Donovan ds4 Amanda Rojo RN RN ea Gardose, Michele, RN RN mg2 Shay Cronin RN mg2 Corrections: (The following items were deleted from the chart) 01:54 01:48 Chief complaint: EMS states: Reports pt was complaining of chest pain that ea started an hour ago 7/10 pain. Pt reports the pain has been going on for a few days, reports he was seen the day before at [facility]. ea 02:07 01:48 Chief complaint: EMS states: Reports pt was complaining of chest pain that ea started an hour ago 7/10 pain. Pt reports the pain has been going on for a few days, reports he was seen the day before at [facility]. Pt reports he has not taken his prescribed medications for about a year ea
--- NOTE | 2020-01-08 02:42 | EDPHYS ---
Physician Documentation [facility] Name: Tyler Carson Age: 49 yrs Sex: Male : 1970 Arrival Date: 01/08/2020 Time: 01:46 Bed 4 Private MD: ED Physician Epifanio Pichardo HPI: 01/07 02:35 This 49 yrs old Male presents to ER via EMS with complaints of Chest Pain. desi 02:35 The patient or guardian reports chest pain that is located primarily in the substernal desi area, anterior chest wall, left. Onset: 1 day(s) ago. The pain radiates to Associated signs and symptoms: Pertinent positives: lightheadedness, shortness of breath. The chest pain is described as a heaviness, causing indigestion, a pressure. Duration: The patient or guardian reports a single episode, that is still ongoing. Modifying factors: The symptoms are alleviated by nothing. the symptoms are aggravated by nothing. Severity of pain: At its worst the pain was moderate in the emergency department the pain is unchanged. The patient has experienced similar episodes in the past, several times. Historical: - Allergies: 01:56 No Known Allergies; ea - Home Meds: 01:55 does not take any [Active]; ea - PMHx: 01:55 Myocardial infarction; Hypertension; ea - PSHx: 01:55 Heart stents; ea - Immunization history:: Adult Immunizations up to date. - Social history:: Smoking status: Patient reports the use of cigarette tobacco products, smokes one pack cigarettes per day. - Family history:: not pertinent. ROS: 02:35 Constitutional: Negative for fever, chills, and weight loss, Eyes: Negative for injury, desi pain, redness, and discharge, ENT: Negative for injury, pain, and discharge, Neck: Negative for injury, pain, and swelling, Respiratory: Negative for shortness of breath, cough, wheezing, and pleuritic chest pain, Abdomen/GI: Negative for abdominal pain, nausea, vomiting, diarrhea, and constipation, Back: Negative for injury and pain, : Negative for injury, bleeding, discharge, and swelling, MS/Extremity: Negative for injury and deformity, Skin: Negative for injury, rash, and discoloration, Neuro: Negative for headache, weakness, numbness, tingling, and seizure, Psych: Negative for depression, anxiety, suicide ideation, homicidal ideation, and hallucinations, Allergy/Immunology: Negative for hives, rash, and allergies, Endocrine: Negative for neck swelling, polydipsia, polyuria, polyphagia, and marked weight changes, Hematologic/Lymphatic: Negative for swollen nodes, abnormal bleeding, and unusual bruising. 02:35 Cardiovascular: Positive for chest pain, of the chest and left arm. 02:35 Respiratory: Positive for cough. Exam: 02:35 Constitutional: This is a well developed, well nourished patient who is awake, alert, desi and in no acute distress. Head/Face: Normocephalic, atraumatic. Eyes: Pupils equal round and reactive to light, extra-ocular motions intact. Lids and lashes normal. Conjunctiva and sclera are non-icteric and not injected. Cornea within normal limits. Periorbital areas with no swelling, redness, or edema. ENT: Nares patent. No nasal discharge, no septal abnormalities noted. Tympanic membranes are normal and external auditory canals are clear. Oropharynx with no redness, swelling, or masses, exudates, or evidence of obstruction, uvula midline. Mucous membranes moist. Neck: Trachea midline, no thyromegaly or masses palpated, and no cervical lymphadenopathy. Supple, full range of motion without nuchal rigidity, or vertebral point tenderness. No Meningismus. Chest/axilla: Normal chest wall appearance and motion. Nontender with no deformity. No lesions are appreciated. Cardiovascular: Regular rate and rhythm with a normal S1 and S2. No gallops, murmurs, or rubs. Normal PMI, no JVD. No pulse deficits. Respiratory: Lungs have equal breath sounds bilaterally, clear to auscultation and percussion. No rales, rhonchi or wheezes noted. No increased work of breathing, no retractions or nasal flaring. Abdomen/GI: Soft, non-tender, with normal bowel sounds. No distension or tympany. No guarding or rebound. No evidence of tenderness throughout. Back: No spinal tenderness. No costovertebral tenderness. Full range of motion. Skin: Warm, dry with normal turgor. Normal color with no rashes, no lesions, and no evidence of cellulitis. MS/ Extremity: Pulses equal, no cyanosis. Neurovascular intact. Full, normal range of motion. Neuro: Awake and alert, GCS 15, oriented to person, place, time, and situation. Cranial nerves II-XII grossly intact. Motor strength 5/5 in all extremities. Sensory grossly intact. Cerebellar exam normal. Normal gait. Psych: Awake, alert, with orientation to person, place and time. Behavior, mood, and affect are within normal limits. 02:35 Musculoskeletal/extremity: DVT Exam: No signs of deep vein thrombosis. no pain, no swelling, no tenderness, negative Homans' sign noted on exam, no appreciated bluish discoloration, no erythema, no increased warmth. 02:47 ECG was reviewed by the Attending Physician. desi 02:48 ECG was reviewed by the Attending Physician. [facility] Vital Signs: 01:50 BP 149 / 109; Pulse 58; Resp 20; Pulse Ox 98% ; Weight 79.38 kg; Height 5 ft. 6 in. ea (167.64 cm); 02:03 BP 160 / 103; Pulse 54; Resp 18; Temp 97.8; Pulse Ox 99% ; ea 03:00 BP 181 / 116; Pulse 56; Resp 18; Pulse Ox 99% ; ea 04:00 BP 170 / 93; Pulse 53; Resp 18; Pulse Ox 98% on R/A; ea 05:00 BP 169 / 104; Pulse 59; Resp 18; Temp 97.9; Pulse Ox 98% on R/A; mg2 01:50 Body Mass Index 28.25 (79.38 kg, 167.64 cm) ea MDM: 02:07 Patient medically screened. desi 02:07 Patient medically screened. [facility] 02:38 Data reviewed: vital signs, nurses notes, lab test result(s), EKG, radiologic studies, [facility] plain films. 02:38 Differential diagnosis: abnormal EKG, acute pericarditis, anxiety, chest wall pain, desi congestive heart failure costochondritis, hiatal hernia, myocarditis, pancreatitis, pulmonary embolus, stable angina, unstable angina. HEART Score: History: Highly Suspicious (2), ECG: Normal (0), Age: > 45 and < 65 years (1), Risk Factors: > or = 3 Risk factors for atherosclerotic disease (2), [Hypercholesterolemia] [Hypertension] [Active Smoker] [+ Family HX] [Obesity] Troponin: < or = 1 x Normal Limit (0). The patient was given aspirin in the Emergency Department. The patient's deep vein thrombosis risk score was calculated as follows: Total Score: 0. This patient was found to be at low risk for a deep vein thrombosis by using the Well's assessment criteria. The patient's pulmonary embolism risk score was calculated as follows: Total Score: 0-2 points. This patient was found to be at low risk for a pulmonary embolism by using the Well's assessment criteria. KIMBERLEY Risk Score: 1 - Three or more CAD risk factors, 1- Known CAD, 1 - Recent [<24hrs] Severe Angina, TOTAL SCORE = 3. Data interpreted: gambling monitor: rate is 54 beats/min, rhythm is regular. Test interpretation: by ED physician or midlevel provider: ECG, plain radiologic studies. Counseling: I had a detailed discussion with the patient and/or guardian regarding: the historical points, exam findings, and any diagnostic results supporting the discharge/admit diagnosis, the presence of at least one elevated blood pressure reading (>120/80) during this emergency department visit, lab results, radiology results, the need for further work-up and treatment in the hospital. 01/07 01:47 Order name: Basic Metabolic Panel 01/07 01:47 Order name: CBC with Diff ea 01/07 01:47 Order name: LFT's ea 01/07 01:47 Order name: Magnesium ea 01/07 01:47 Order name: NT PRO-BNP 01/07 01:47 Order name: PT-INR 01/07 01:47 Order name: Troponin (emerg Dept Use Only) 01/07 02:06 Order name: Lipase [facility] 01/07 02:13 Order name: Protime (+INR); Complete Time: 02:33 EDMS 01/07 02:13 Order name: CBC with Automated Diff; Complete Time: 02:33 EDMS 01/07 02:24 Order name: Basic Metabolic Panel; Complete Time: 02:33 EDMS 01/07 02:24 Order name: Liver (Hepatic) Function; Complete Time: 02:33 EDMS 01/07 02:24 Order name: Troponin (Emerg Dept Use Only); Complete Time: 02:33 EDMS 01/07 02:24 Order name: NT PRO-BNP; Complete Time: 02:33 EDMS 01/07 01:47 Order name: XRAY Chest (1 view) ea 01/07 02:24 Order name: Magnesium; Complete Time: 02:33 EDMS 01/07 02:24 Order name: Lipase; Complete Time: 02:33 EDMS 01/07 02:43 Order name: COVID-19 desi 01/07 01:47 Order name: EKG; Complete Time: 01:49 ea 01/07 01:47 Order name: Cardiac monitoring; Complete Time: 01:50 ea 01/07 01:47 Order name: EKG - Nurse/Tech; Complete Time: :50 ea 01/07 01:47 Order name: IV Saline Lock; Complete Time: :55 ea 01/07 01:47 Order name: Labs collected and sent; Complete Time: :55 ea 01/07 01:47 Order name: O2 Per Protocol; Complete Time: 50 ea 01/07 01:47 Order name: O2 Sat Monitoring; Complete Time: :50 ea EC:47 Rate is 58 beats/min. Rhythm is regular. QRS [place] is Normal. [place] interval is normal. QRS desi interval is normal. QT interval is normal. No Q waves. T waves are Normal. No ST changes noted. Clinical impression: Sinus bradycardia and No evidence of ischemia. Interpreted by me. Reviewed by me. 02:48 Rate is 49 beats/min. Rhythm is regular. QRS [place] is Normal. [place] interval is normal. QRS desi interval is normal. QT interval is normal. No Q waves. T waves are Normal. No ST changes noted. Clinical impression: Sinus bradycardia and No evidence of ischemia. Interpreted by me. Reviewed by me. Administered Medications: 02:22 Drug: NS 0.9% 1000 ml Route: IV; Rate: 125 ml/hr; Site: left hand; mg2 04:57 Follow up: Response: No adverse reaction; IV Status: Completed infusion; Infusion ea continued upon admission 02:37 Drug: morphine 4 mg {Note: RASS 1.} Route: IVP; Site: left antecubital; ea 03:00 Follow up: Response: No adverse reaction; RASS: Alert and Calm (0) ea 02:37 Drug: Zofran (Ondansetron) 4 mg Route: IVP; Site: left antecubital; ea 03:00 Follow up: Response: No adverse reaction ea 02:39 Not Given (pt reports he took 5 aspirin at 2200): Aspirin Chewable Tablet 324 mg PO ea once; 81 mg tablets x 4 03:03 Drug: Pepcid 20 mg Route: IVP; Site: left antecubital; ea 03:29 Follow up: Response: No adverse reaction ea 03:03 Drug: PlaVIX 300 mg Route: PO; ea 03:29 Follow up: Response: No adverse reaction ea 03:06 Drug: Heparin (AK Drip) 12 units/kg/hr - (HEParin 69338 units, D5W 500 ml) ea {Co-Signature: mg2 (Shay Cronin RN).} Route: IV; Rate: calculated rate; Site: left antecubital; 03:57 Follow up: IV Status: Infusion continued upon admission ea 03:07 Drug: Heparin (AK-Bolus No thrombolytic) - HEParin 60 units/kg {Co-Signature: mg2 ea (Shay Cronin RN).} Route: IVP; Site: right antecubital; 03:57 Follow up: Response: No adverse reaction ea 03:26 Drug: hydrALAZINE 10 mg Route: PO; ea 03:57 Follow up: Response: No adverse reaction ea 03:26 Drug: hydrALAZINE 5 mg Route: IV; Rate: per protocol; Site: left antecubital; ea 03:58 Follow up: Response: No adverse reaction; IV Status: Completed infusion ea 03:37 Not Given (Other Intervention Used): Zocor 40 mg PO once ea 05:00 Not Given (to be given in the floor- out of stock in ed): Lipitor 40 mg PO once mg2 Disposition: 01/08/20 02:41 Hospitalization ordered by Isak Zavala for Observation. Preliminary diagnosis are Other chest pain, Angina pectoris, Essential (primary) hypertension, Tobacco abuse counseling, Tobacco use. - Bed requested for Telemetry/MedSurg (observation). - Status is Observation. mg2 - Condition is Stable. - Problem is new. - Symptoms have improved. Signatures: Dispatcher [employer] EDMS Epifanio Pichardo MD MD cha Garcia, Cindy RN RN cg Amanda Rojo RN RN ea Gardose, Michele, RN RN mg2 Shay Cronin RN mg2 Corrections: (The following items were deleted from the chart) 04:57 02:41 Hospitalization Ordered by Isak Zavala for Observation. Preliminary diagnosis cg is Other chest pain; Angina pectoris; Essential (primary) hypertension; Tobacco abuse counseling; Tobacco use. Bed requested for Telemetry/MedSurg (observation). Status is Observation. Condition is Stable. Problem is new. Symptoms have improved. desi 05:17 04:57 01/08/2020 02:41 Hospitalization Ordered by Isak Zavala for Observation. mg2 Preliminary diagnosis is Other chest pain; Angina pectoris; Essential (primary) hypertension; Tobacco abuse counseling; Tobacco use. Bed requested for Telemetry/MedSurg (observation). Status is Observation. Condition is Stable. Problem is new. Symptoms have improved. cg
[2020-01-08] MEDS ORDERED: MORPHINE 4 MG/ML SYR ONE (02:43)
[2020-01-08] MEDS ORDERED: ONDANSETRON 4 MG/2 ML VIAL ONE (02:43)
[2020-01-08] MEDS ORDERED: FAMOTIDINE 20 MG/2 ML VIAL IV ONE (02:58)
[2020-01-08] MEDS ORDERED: HEPARIN/D5W 25,000 UNIT/500 ML BAG IV ONE (02:58)
[2020-01-08] MEDS ORDERED: CLOPIDOGREL 75 MG TABLET ONE (02:58)
[2020-01-08] MEDS ORDERED: HEPARIN 5000 UNIT/ML 1 ML VIAL ONE ×2 (02:58→12:43)
[2020-01-08] MEDS ORDERED: HYDRALAZINE HCL 20 MG/ML VIAL ONE (03:23)
[2020-01-08] MEDS ORDERED: HYDRALAZINE HCL 10 MG TABLET ONE (03:23)
--- NOTE | 2020-01-08 03:53 | P.HP ---
Certification for Inpatient Patient admitted to: Observation With expected LOS: <2 Midnights Practitioner: I am a practitioner with admitting privileges, knowledge of patient current condition, hospital course, and medical plan of care. Services: Services provided to patient in accordance with Admission requirements found in Title 42 Section 412.3 of the Code of Federal Regulations Patient History Date of Service: 01/08/20 Reason for admission: Chest pain History of Present Illness: 49-year-old gentleman with a history of coronary artery disease status post stent, noncompliant with medications presented emergency department with a complaint of intermittent chest pain that has been present for about 3-4 days. Patient reports anterior chest pain, maximum intensity 7/10, no known relieving or aggravating factors. He said he was at [place] for chest pain about 3 days. He stated his cardiac enzyme was elevated but refused transfer for cardiac catheterization. His initial troponin in the ED is negative. EKG demonstrates sinus bradycardia, no ST-T changes. Chest x-ray is unremarkable. Patient is placed under observation for ACS rule out. - Past Medical/Surgical History -: Hypertension -: Coronary artery disease -: Hyperlipidemia -: Cardiac stent - Family History Mother -: Heart disease - Social History Smoking Status: Current every day smoker Alcohol use: Yes CD- Drugs: No Place of Residence: Home Review of Systems Other: Except as documented, all other systems reviewed and negative. Physical Examination - Physical Exam General: Alert, In no apparent distress, Oriented x3 HEENT: Atraumatic, Normocephalic, Mucous membr. moist/pink, Sclerae nonicteric Neck: Supple, JVD not distended Respiratory: Clear to auscultation bilaterally, Normal air movement Cardiovascular: No edema, Regular rate/rhythm, Normal S1 S2, No murmurs Capillary refill: <2 Seconds Gastrointestinal: Normal bowel sounds, Soft and benign, No tenderness Musculoskeletal: No swelling, No erythema Integumentary: No rashes Neurological: Normal strength at 5/5 x4 extr, Cranial nerves 3-12 intact - Studies Laboratory Data (last 24 hrs) 01/08/20 02:06: Lipase Cancelled 01/08/20 01:51: PT 11.5, INR 0.97 01/08/20 01:51: WBC 12.6 H, Hgb 14.8, Hct 43.5, Plt Count 241 08/10/20 01:51: Sodium 143, Potassium 4.1, BUN 17, Creatinine 1.02, Glucose 108 H, Magnesium 2.0, Total Bilirubin 0.2, AST 12 L, ALT 32, Alkaline Phosphatase 46, Lipase 158 Assessment and Plan - Problems (Diagnosis) (1) Chest pain Current Visit: Yes Status: Acute (2) Coronary artery disease Current Visit: Yes Status: Acute (3) H/O heart artery stent Current Visit: Yes Status: Acute (4) Hypertension Current Visit: Yes Status: Acute - Plan Place under observation Trend troponin Start aspirin, plavix, metoprolol, lipitor. Cardiology consult. Start lisinopril Obtain echo. - Advance Directives Does patient have a Living Will: No Does patient have a Durable POA for Healthcare: No
[2020-01-08] MEDS ORDERED: MORPHINE 4 MG/ML SYR IV PRN (05:18)
[2020-01-08] MEDS ORDERED: NITROGLYCERIN 0.4 MG/TAB SL PRN (05:18)
[2020-01-08 06:30] VITALS: BMI 28.2
[2020-01-08] MEDS: ASPIRIN EC 81 MG TAB PO SCH (07:44)
[2020-01-08] MEDS ORDERED: CLOPIDOGREL 75 MG TABLET PO SCH (09:00)
[2020-01-08] MEDS ORDERED: METOPROLOL TAR 50 MG TAB PO SCH (09:00)
[2020-01-08] MEDS: ENOXAPARIN 40 MG/0.4 ML SQ SCH (09:12)
--- NOTE | 2020-01-08 11:33 | RAD REPORT ---
EXAM DESCRIPTION: RAD - Chest Single View - 01/08/2020 2:40 am CLINICAL HISTORY: CHEST PAIN Chest pain. COMPARISON: No comparisons FINDINGS: Portable technique limits examination quality. The lungs are grossly clear. The heart is normal in size. No displaced fractures. IMPRESSION: No acute intrathoracic process suspected.
[2020-01-08] MEDS ORDERED: HEPA 1000U/500MLS 2,000 UNIT/1,000 ML BAG IV ONE (12:24)
[2020-01-08] MEDS ORDERED: MIDAZOLAM HCL 2 MG/2 ML INJ ONE ×2 (12:44→13:27)
[2020-01-08] MEDS ORDERED: NICARDIPINE HCL 25 MG/10 ML IV ONE (12:44)
[2020-01-08] MEDS ORDERED: FENTANYL CITR 100 MCG/2 ML ONE (12:44)
[2020-01-08] MEDS ORDERED: HEPARIN 10,000 UNIT/10 ML VIAL IV ONE (12:44)
[2020-01-08] MEDS ORDERED: NITROGLYCERIN 100 MCG/ML SYR (for cath lab use only) IV ONE (12:45)
[2020-01-08] MEDS ORDERED: ATROPINE SULF 1 MG/10 ML SYR IV ONE (12:45)
[2020-01-08] MEDS ORDERED: NA CHLORIDE 0.9% 500 ML ONE (13:13)
[2020-01-08] MEDS ORDERED: TICAGRELOR 90 MG TABLET PO ONE (13:49)
--- NOTE | 2020-01-08 14:18 | P.PN ---
Subjective Date of Service: 01/08/20 How long conversation with patient. Patient had been at outside hospital with severe pain as well. However, he wanted o'clock some money so we left against medical advice. He returns with severe pain once again. Pain was severe and he has not been compliant with any of his cardiac medications because he does not have insurance. Patient has had elevated troponin as well. Patient having a non ST-elevation myocardial infarction. Patient will be taken to the cardiac catheterization lab. Review of Systems 10-point ROS is otherwise unremarkable Physical Examination - Vital Signs Temperature: 97 F Blood Pressure: 145/93 Pulse: 54 Respirations: 18 Pulse Ox (%): 96 - Physical Exam General: Alert, In no apparent distress, Oriented x3 Respiratory: Clear to auscultation bilaterally, Normal air movement Cardiovascular: Regular rate/rhythm, Normal S1 S2, No murmurs Gastrointestinal: Normal bowel sounds, Soft and benign, Non-distended, No tenderness Musculoskeletal: No clubbing, No swelling, No tenderness Neurological: Sensation intact, Cranial nerves 3-12 intact - Studies Laboratory Data (last 24 hrs) 01/08/20 06:00: Troponin I 0.29 H 01/08/20 02:06: Lipase Cancelled 01/08/20 01:51: PT 11.5, INR 0.97 01/08/20 01:51: WBC 12.6 H, Hgb 14.8, Hct 43.5, Plt Count 241 01/08/20 01:51: Sodium 143, Potassium 4.1, BUN 17, Creatinine 1.02, Glucose 108 H, Magnesium 2.0, Total Bilirubin 0.2, AST 12 L, ALT 32, Alkaline Phosphatase 46, Lipase 158 Medications List Reviewed: Yes Assessment & Plan - Problems (Diagnosis) (1) Coronary artery disease Current Visit: Yes Status: Acute (2) H/O heart artery stent Current Visit: Yes Status: Acute (3) Hypertension Current Visit: Yes Status: Acute - Plan 1. Serial troponins and EKG 2. Cardiology consultation appreciated 3. Cardiac catheterization will be performed today 4. Anti-platelet therapy, anti coagulation, beta-fercho, statin, and O2 as needed 5. IV morphine for pain 6. Nitro p.r.n. Discharge Plan: Home Plan to discharge in: Greater than 2 days - Advance Directives Does patient have a Living Will: No Does patient have a Durable POA for Healthcare: No - Code Status/Comfort Care Code Status Assessed: Yes Code Status: Full Code Critical Care: No Time Spent Managing PTS Care (In Minutes): 60
[2020-01-08] MEDS ORDERED: NA CHLORIDE 0.9% 1,000 ML IV SCH (19:00)
[2020-01-08] MEDS ORDERED: ACETAMINOPHEN 325 MG TABLET PO PRN (19:00)
[2020-01-08] MEDS: METOPROLOL TAR 50 MG TAB PO SCH (20:35)
[2020-01-08] MEDS: TICAGRELOR 90 MG TABLET PO SCH (20:35)
[2020-01-09 05:42] LABS: Absolute Lymphocytes (CBC) 3.1 K/uL (0.7-4.9); Basophils % 1.3 % (0-1.3); Hematocrit 43.6 % (39.6-49.0); Lymphocytes % 23.7 % (15.3-44.8); MPV 8.7 fL (7.6-11.3)
[2020-01-09 05:53] LABS: Potassium 3.9 mmol/L (3.5-5.1)
[2020-01-09] MEDS: TICAGRELOR 90 MG TABLET PO SCH (08:20)
[2020-01-09] MEDS: ENOXAPARIN 40 MG/0.4 ML SQ SCH (08:20)
[2020-01-09] MEDS: METOPROLOL TAR 50 MG TAB PO SCH (08:20)
[2020-01-09] MEDS: ASPIRIN EC 81 MG TAB PO SCH (08:20)
[2020-01-09 08:29] VITALS: O2SAT 96
[2020-01-09] MEDS ORDERED: CLOPIDOGREL 75 MG TABLET PO ONE (10:55)
--- NOTE | 2020-01-09 21:45 | PN ---
Date of Progress Note: 01/09/2020 Subjective: Mr. Carson came in with acute coronary syndrome yesterday, underwent an angioplasty and stent procedure by Dr. Abbasi. He had an angioplasty and stent of a totally occluded circumflex. He had an angioplasty and stent of the ramus. Subjectively overnight, he is doing well, has no chest p ain. Objective: Vital Signs: Stable. He was in normal rhythm. Chest: Clear. Extremities: His right wrist site is intact. Impression And Plan: Coronary artery disease, status post angioplasty and stent of the circumflex an d ramus. The patient should go home on aspirin, Lipitor, metoprolol, and Plavix and see him in the o ffice in 2 weeks. JOSEF/JACQUELINE Voice ID: [id number] Report ID: [id number]
--- NOTE | 2020-01-11 07:32 | EKG ---
Test Date: 2020-01-08 Test Time: 16:18:53 Driller And Reamer: SHANTI MEASUREMENT RESULTS: Intervals: Rate: 55 IA: 174 QRSD: 76 QT: 420 QTc: 401 Slaughter: P: 114 IA: 174 QRS: 213 T: 111 INTERPRETIVE STATEMENTS: Suspect arm lead reversal, interpretation assumes no reversal Sinus bradycardia Lateral infarct, age undetermined Abnormal ECG Compared to ECG 01/08/2020 02:30:14 Myocardial infarct finding now present ST (T wave) deviation no longer present Electronically Signed On 01-11-20 07:28:59 CDT by Milind Simms
[2020-01-14 15:51] VITALS: BP 145/93; TEMP 97
--- NOTE | 2020-01-14 15:53 | P.DS ---
Discharge Date: 01/09/20 Disposition: ROUTINE DISCHARGE Discharge Condition: GOOD Reason for Admission: Chest pain Consultations: Cardiology - Problems (1) Coronary artery disease Status: Acute (2) H/O heart artery stent Status: Acute (3) Hypertension Status: Acute Brief History of Present Illness: Patient is a 49-year-old gentleman who came to the hospital with chest pain rule out acute coronary syndrome. His troponins were elevated. He was symptomatic and having unstable angina. Troponins were elevated but no EKG findings so patient most likely had a non STEMI. Patient was taken to the cardiac catheterization lab. Hospital Course: Taken to the labor mediator by Dr. Abbasi. Patient totally occluded left circumflex. Also had a stent placed in his left ramus. Clinically doing well in at this time stable for discharge with outpatient follow-up. Given doctors for her anti-platelet agents. Hopefully patient will compliant take medication otherwise he is at risk for intrastent occlusion. Vital Signs/Physical Exam: Temp Pulse Resp BP Pulse Ox 97 F 54 18 145/93 H 96 01/14/20 15:50 01/14/20 15:50 01/14/20 15:50 01/14/20 15:50 01/14/20 15:50 General: Alert, In no apparent distress, Oriented x3 Laboratory Data at Discharge: WBC 13.2 K/uL (4.3-10.9) H 01/09/20 05:25 Hgb 14.9 g/dL (13.6-17.9) 01/09/20 05:25 Hct 43.6 % (39.6-49.0) 01/09/20 05:25 Plt Count 228 K/uL (152-406) 01/09/20 05:25 PT 11.5 SECONDS (9.5-12.5) 01/08/20 01:51 INR 0.97 01/08/20 01:51 Sodium 140 mmol/L (136-145) 01/09/20 05:25 Potassium 3.9 mmol/L (3.5-5.1) 01/09/20 05:25 BUN 11 mg/dL (7-18) 01/09/20 05:25 Creatinine 0.93 mg/dL (0.55-1.3) 01/09/20 05:25 Glucose 97 mg/dL (74-106) 01/09/20 05:25 Magnesium 2.0 mg/dL (1.8-2.4) 01/08/20 01:51 Total Bilirubin 0.2 mg/dL (0.2-1.0) 01/08/20 01:51 AST 12 U/L (15-37) L 01/08/20 01:51 ALT 32 U/L (12-78) 01/08/20 01:51 Alkaline Phosphatase 46 U/L (45-117) 01/08/20 01:51 Troponin I 4.55 ng/mL (0.0-0.045) H* D 01/08/20 10:01 Lipase Cancelled 01/08/20 02:06 Home Medications: Aspirin [Ecotrin 81 MG] 81 mg PO DAILY #30 tablet. 01/09/20 Atorvastatin Calcium [Lipitor] 40 mg PO DAILY #30 tablet 01/09/20 Clopidogrel Bisulfate [Plavix] 75 mg PO DAILY #30 tablet 01/09/20 Metoprolol Tartrate [Lopressor*] 25 mg PO BID #30 tab 01/09/20 Nitroglycerin 0.4 mg SL Q5M PRN #100 tab.subl 01/09/20 New Medications: Aspirin [Ecotrin 81 MG] 81 mg PO DAILY #30 tablet. Atorvastatin Calcium [Lipitor] 40 mg PO DAILY #30 tablet Metoprolol Tartrate [Lopressor*] 25 mg PO BID #30 tab Nitroglycerin 0.4 mg SL Q5M PRN #100 tab.subl PRN Reason: CHEST PAIN/ANGINA Clopidogrel Bisulfate [Plavix] 75 mg PO DAILY #30 tablet Patient Discharge Instructions: OK TO DC IV AND DC HOME. FOLLOW-UP WITH PRIMARY CARE PROVIDER IN 1-2 WEEKS. FOLLOW-UP WITH CARDIOLOGY IN 1-2 WEEKS. RETURN TO THE ER IF symptoms worsen. CALL or TEXT DR. KRISHNAMURTHY AT [phone] IF ANY QUESTIONS REGARDING HOSPITAL STAY. PLEASE CALL THE FLOOR AT [phone] IF ANY MEDICATION OR NURSING QUESTIONS. Diet: AHA Activity: Fall precautions Time spent managing pt's care (in minutes): 30
--- NOTE | 2020-01-14 15:55 | P.PN ---
Date of Service: 01/12/20 Have tried a reach patient regarding COVID testing unable to contact. We will continue calling daily.
--- NOTE | 2020-01-14 15:57 | P.PN ---
Date of Service: 01/13/20 Unable to reach patient. Continue calling him tomorrow
--- NOTE | 2020-01-14 15:58 | P.PN ---
Date of Service: 01/14/20 I am still unable to get a hold of the patient. Even used my cellphone and texted him. Still no response.
--- NOTE | 2020-01-16 11:05 | P.PN ---
Date of Service: 01/15/20 Pt call me back today. I informed him of is positive COVID-19 Test. He was told he needs to quarantine for the next 2 weeks. And anyone he has been around needs to quarantine for the next 2 weeks as well.
--- NOTE | 2020-01-20 01:17 | OP ---
Date of Procedure: 01/08/2020 Surgeon: RELL COLEMAN Procedures Performed: 1.Selective coronary angiogram. 2.Left heart catheterization. 3.Percutaneous coronary intervention of mid left circumflex 100% stenosis using 2.75 x 28 mm Synergy drug-eluting stent, postdilated the proximal using 3.25 x 50 mm NC balloon. 4.Percutaneous coronary intervention of mid ramus intermedius severe stenosis using 3.5 x 20 mm drug -eluting stent, overlapped distally to close the gap, the distal stent using 3.0 x 16 mm drug-eluting stent, then postdilated the proximal stent using 4.0 x 50 mm NC balloon. Access: Right radial artery 6-Ecuadorean, closed with TR band. Indications: [id number] myocardial infarction. Description Of Procedure: After risks and benefits were explained, the patient was brought into the cardiac catheterization laboratory, prepped and draped in usual sterile fashion and we used fentanyl and Versed in incremental doses to achieve adequate moderate sedation and then we accessed right radi al artery using pediatric micropuncture kit and then we inserted a 6-Ecuadorean slender sheath and then w e took a 5-Ecuadorean Livingston catheter into the aortic root over a J-wire, engaged right coronary artery an d left coronary artery, took standard views and then determined intervention as needed. Intervention Details: We gave systemic heparin to assure ACT level above 250. Then, we took an EBU3 .5 into the aortic root, engaged the left main coronary artery and then we took a short run-through w lali across the stenosis, trying to cross the stenosis of the left circumflex stenosis; however, we we re not able to cross it as it was 100%, so we took a Fielder XT wire and easily we were able to cross the stenosis to the distal vessel, so we took [id number] balloon. Then, we exchanged to a run-th rough wire and then we ballooned the stenosis using a 2.5 x 50 mm Emerge compliant balloon. Then, we took a 2.75 x 28 mm Synergy drug-eluting stent across the stenosis, deployed the stent and optimized the proximal portion using 3.25 x 50 mm NC balloon with excellent results. Then, we took the short run-through wire into the ramus intermedius and crossed the stenosis and we predilated using a 3.0 x 50 mm balloon and then we placed a 3.5 x 20 mm Synergy drug-eluting stent and postdilated proximally using 4.0 x 50 mm NC balloon and there was a gap between the stent and the distally placed stent, so we took another 3.0 x 16 mm drug-eluting stent and overlapped both stents and we deployed the stents successfully and then we dilated the overlap points very well and we had excellent results and we too k all the wires and guides out and the catheter. We closed the access with TR band with good hemosta sis. Total sedation time was 85 minutes. Findings: 1.Left main is normal, large. 2.LAD has patent mid LAD stent; otherwise, no significant disease. Ramus intermedius has ostial 20% , but midportion there is an 80% stenosis. Lesion length was 18 mm with 80% to 90% stenosis. KIMBERLEY-3 flow pre and post PCI and 0% residual stenosis post PCI. 3.We have a left circumflex with proximal 20% stenosis. Mid is totally occluded; however, it is raquel sh occlusion. KIMBERLEY 0 flow post PCI, 0% residual stenosis, and KIMBERLEY-3 flow. Lesion length was 22 mm. 4.RCA has proximal 20% and then diffuse 20% to 30% stenosis after that. Conclusion: 1.Severe mid ramus intermedius stenosis, status post successful PCI as above. 2.Totally occluded mid left circumflex, status post successful PCI as outlined above, which is a cul prit for the GA. 3.Coronary artery disease that is mild elsewhere. Recommendations: 1.Brilinta 180 was given. Continue 90 mg q.12 hours and aspirin and high dose statin. 2.Follow up in the office 4 weeks post discharge. SR/MODL Voice ID: [id number] Report ID: [id number]
== END 2020-01-09 11:35 | disposition home or self-care (01) | DRG 246 ==
LOC: ER 01:42 → ERHOLD 03:57 → 2ND 04:59 → OBSVTOIN 07:37
PROVIDERS: ADMIT Internal Medicine; ATTEND Hospitalist
PROC: 027035Z Dilation of Coronary Artery, One Artery with Two Drug-eluting Intraluminal Devices, Percutaneous Approach (ICD-10-PCS; principal; 2020-01-08)
PROC: 4A023N7 Measurement of Cardiac Sampling and Pressure, Left Heart, Percutaneous Approach (ICD-10-PCS; 2020-01-08)
PROC: B2111ZZ Fluoroscopy of Multiple Coronary Arteries using Low Osmolar Contrast (ICD-10-PCS; 2020-01-08)
DX: I21.4 Non-ST elevation (NSTEMI) myocardial infarction (principal); U07.1 COVID-19; I25.110 Atherosclerotic heart disease of native coronary artery with unstable angina pectoris; I10 Essential (primary) hypertension; E78.5 Hyperlipidemia, unspecified; F17.200 Nicotine dependence, unspecified, uncomplicated; I25.2 Old myocardial infarction; Z95.5 Presence of coronary angioplasty implant and graft; Z91.14 Patient's other noncompliance with medication regimen
CPT/HCPCS: 36415; 71045; 80048; 80076; 82947; 83690; 83735; 83880; 84484; 85025; 85347; 85610; 92928; 93005; 93458; 99285; C1725; C1893; G0378; J0360; J1644; J1650; J2250; J2405; J3010; J7030; J7040; U0002

== ENCOUNTER 2020-02-08 01:35 | Emergency (ER) | payer SELFPAY ==
--- OUTSIDE RECORDS SUMMARY | 2020-02-08 01:36 | XMS REPORT | Continuity of Care Document ---
:1970 Author Organization [facility] t Address [address] [place] [address] Care Team Providers Name Role Phone Meron [...] Facility Department ID 2020-01-03 2020-01-04 Emergency Meron [facility] [id number] 21:11:00 02:40:00 Dragan Peralta [id number] [place] [id number] [place] [phone] [id number] Results This patient has no known results.
[2020-02-08] MEDS ORDERED: MORPHINE 4 MG/ML SYR ONE (02:10)
[2020-02-08] MEDS ORDERED: ONDANSETRON 4 MG/2 ML VIAL ONE (02:10)
[2020-02-08 02:43] LABS: Absolute Lymphocytes (CBC) 3.1 K/uL (0.7-4.9); Basophils % 0.9 % (0-1.3); Lymphocytes % 22.6 % (15.3-44.8); MPV 8.9 fL (7.6-11.3); RBC Red Blood Cell Count 5.14 M/uL (4.33-5.43)
[2020-02-08 02:44] LABS: Protime INR 0.92
[2020-02-08 03:03] LABS: ALT/SGPT 48 U/L (12-78); AST/SGOT 16 U/L (15-37); Albumin 3.4 g/dL (3.4-5.0); Alkaline Phosphatase 64 U/L (45-117); BUN Blood Urea Nitrogen 14 mg/dL (7-18); Bicarbonate 25 mmol/L (21-32); Bilirubin Direct < 0.1 mg/dL (0-0.2); Bilirubin Total 0.3 mg/dL (0.2-1.0); Glucose Level 99 mg/dL (74-106); Potassium 4.3 mmol/L (3.5-5.1); Protein, Total 7.6 g/dL (6.4-8.2); Sodium Level 139 mmol/L (136-145)
--- NOTE | 2020-02-08 03:38 | EDPHYS ---
Physician Documentation [facility] Name: Tyler Carson Age: 49 yrs Sex: Male : 1970 Arrival Date: 02/08/2020 Time: 01:37 Bed 7 Private MD: ED Physician Pepe Saenz HPI: 02/07 02:36 This 49 yrs old Male presents to ER via Ambulatory with complaints of Fall mh7 Injury, Back Pain. 02:36 Details of fall: The patient fell from an upright position, while walking. Onset: The mh7 symptoms/episode began/occurred yesterday. Associated injuries: The patient sustained left mid back and rib area, painful injury. Severity of symptoms: At their worst the symptoms were moderate, yesterday, in the emergency department the symptoms are unchanged. Patient states that he tripped and fell due to wet surface while walking down some stairs on his porch yesterday. He landed onto his left side. He denies any head injury, LOC, or neck pain.. Historical: - Allergies: 01:52 No Known Allergies; mg2 - Home Meds: 01:52 BP medicine [Active]; blood thinner [Active]; mg2 - PMHx: 01:52 Hypertension; Myocardial infarction; mg2 - PSHx: 01:52 Heart stents; mg2 - Immunization history: Last tetanus immunization: unknown. - Social history:: Smoking status: Patient reports the use of cigarette tobacco products, smokes one-half pack cigarettes per day, Patient/guardian denies using alcohol, street drugs, IV drugs. ROS: 02:36 Constitutional: Negative for fever, chills, and weight loss, Eyes: Negative for injury, mh7 pain, redness, and discharge, ENT: Negative for injury, pain, and discharge, Neck: Negative for injury, pain, and swelling, Cardiovascular: Negative for chest pain, palpitations, and edema, Respiratory: Negative for shortness of breath, cough, wheezing, and pleuritic chest pain, Abdomen/GI: Negative for abdominal pain, nausea, vomiting, diarrhea, and constipation, : Negative for injury, bleeding, discharge, and swelling, MS/Extremity: Negative for injury and deformity, Skin: Negative for injury, rash, and discoloration, Neuro: Negative for headache, weakness, numbness, tingling, and seizure, Psych: Negative for depression, anxiety, suicide ideation, homicidal ideation, and hallucinations, Allergy/Immunology: Negative for hives, rash, and allergies, Endocrine: Negative for neck swelling, polydipsia, polyuria, polyphagia, and marked weight changes, Hematologic/Lymphatic: Negative for swollen nodes, abnormal bleeding, and unusual bruising. Exam: 02:36 Constitutional: The patient appears in no acute distress, alert, awake, uncomfortable. mh7 02:45 Head/Face: Normocephalic, atraumatic. Eyes: Pupils equal round and reactive to light, mh7 extra-ocular motions intact. Lids and lashes normal. Conjunctiva and sclera are non-icteric and not injected. Cornea within normal limits. Periorbital areas with no swelling, redness, or edema. Neck: Trachea midline, no thyromegaly or masses palpated, and no cervical lymphadenopathy. Supple, full range of motion without nuchal rigidity, or vertebral point tenderness. No Meningismus. 02:45 Cardiovascular: Regular rate and rhythm with a normal S1 and S2. No gallops, murmurs, or rubs. Normal PMI, no JVD. No pulse deficits. Respiratory: Lungs have equal breath sounds bilaterally, clear to auscultation and percussion. No rales, rhonchi or wheezes noted. No increased work of breathing, no retractions or nasal flaring. Abdomen/GI: Soft, non-tender, with normal bowel sounds. No distension or tympany. No guarding or rebound. No evidence of tenderness throughout. 02:45 Skin: Warm, dry with normal turgor. Normal color with no rashes, no lesions, and no evidence of cellulitis. MS/ Extremity: Pulses equal, no cyanosis. Neurovascular intact. Full, normal range of motion. Neuro: Awake and alert, GCS 15, oriented to person, place, time, and situation. Cranial nerves II-XII grossly intact. Motor strength 5/5 in all extremities. Sensory grossly intact. Cerebellar exam normal. Normal gait. Psych: Awake, alert, with orientation to person, place and time. Behavior, mood, and affect are within normal limits. 02:45 Chest/axilla: Inspection: normal, Palpation: tenderness, that is moderate, of the left lateral posterior chest, that totally reproduces the patient's complaints, Axilla: are normal, Lymph nodes: lymphadenopathy is not appreciated. 02:45 Back: pain, is absent, ROM is normal, normal spinal alignment noted, CVA tenderness, that is mild, is noted on the left, vertebral tenderness, is not appreciated, muscle spasm, is not present. Vital Signs: 02:05 BP 115 / 76; Pulse 77; Resp 18; Temp 98.5; Pulse Ox 100% on R/A; Weight 79.38 kg; mg2 Height 5 ft. 6 in. (167.64 cm); Pain 10/10; 02:57 Pulse 61; Resp 18; Pulse Ox 97% on R/A; mg2 03:06 BP 116 / 83; Pulse 94; Resp 16; Pulse Ox 97% ; Pain 5/10; mt2 02:05 Body Mass Index 28.25 (79.38 kg, 167.64 cm) mg2 Easton Coma Score: 02:05 Eye Response: spontaneous(4). Verbal Response: oriented(5). Motor Response: obeys mg2 commands(6). Total: 15. 02:57 Eye Response: spontaneous(4). Verbal Response: oriented(5). Motor Response: obeys mg2 commands(6). Total: 15. Trauma Score (Adult): 02:05 Eye Response: spontaneous(1); Verbal Response: oriented(1); Motor Response: obeys mg2 commands(2); Systolic BP: > 89 mm Hg(4); Respiratory Rate: 10 to 29 per min(4); Easton Score: 15; Trauma Score: 12 02:57 Eye Response: spontaneous(1); Verbal Response: oriented(1); Motor Response: obeys mg2 commands(2); Systolic BP: > 89 mm Hg(4); Respiratory Rate: 10 to 29 per min(4); Mariel Score: 15; Trauma Score: 12 MDM: 01:52 Patient medically screened. [facility] 03:35 Differential diagnosis: abrasion, contusion, fracture. Data reviewed: vital signs, [facility] nurses notes, old medical records, lab test result(s), CBC, electrolytes, radiologic studies, CT scan. Data interpreted: Pulse oximetry: on room air is 97 %. Interpretation: normal. Counseling: I had a detailed discussion with the patient and/or guardian regarding: the historical points, exam findings, and any diagnostic results supporting the discharge/admit diagnosis, lab results, radiology results, the need for outpatient follow up, to return to the emergency department if symptoms worsen or persist or if there are any questions or concerns that arise at home. Response to treatment: the patient's symptoms have markedly improved after treatment. 02/07 01:54 Order name: Basic Metabolic Panel; Complete Time: 03:30 [facility] 02/07 01:54 Order name: CBC with Diff; Complete Time: 03:00 [facility] 02/07 01:54 Order name: Type And Screen [facility] 02/07 01:54 Order name: Protime (+inr); Complete Time: 03:00 [facility] 02/07 01:54 Order name: Ptt, Activated; Complete Time: 03:00 [facility] 02/07 01:54 Order name: LFT's; Complete Time: 03:30 [facility] 02/07 01:54 Order name: Labs collected and sent; Complete Time: 02:05 [facility] 02/07 01:55 Order name: Chest Abdomen Pelvis W Con CT [facility] Administered Medications: 02:05 Drug: morphine 4 mg Route: IVP; Site: right antecubital; mg2 02:51 Follow up: Response: No adverse reaction; Pain is decreased mt2 02:05 Drug: Zofran (Ondansetron) 4 mg Route: IVP; Site: right antecubital; mg2 02:51 Follow up: Response: No adverse reaction; Nausea is decreased mt2 Disposition: 02/08/20 03:37 Discharged to Home. Impression: Fall-Mechanical, Back Contusion. - Condition is Stable. - Discharge Instructions: Contusion, Bigk-[id number], Fall Prevention in the Home, [id number]. - Prescriptions for Colace 100 mg Oral Tablet - take 1 tablet by ORAL route every 12 hours; 14 tablet. Tylenol- Codeine #3 300-30 mg Oral Tablet - take 2 tablets by ORAL route every 6 hours As needed; 20 tablet. - Medication Reconciliation Form, Thank You Letter, Antibiotic Education, Prescription Opioid Use form. - Follow up: Private Physician; When: 1 - 2 days; Reason: Worsening of condition, Recheck today's complaints, Continuance of care, Re-evaluation by your physician. - Problem is new. - Symptoms have improved. Signatures: Dispatcher [employer] EDShay Agarwal RN RN [facility] [place] Pepe Saenz MD MD [facility] Lea Baker RN RN mt2 Corrections: (The following items were deleted from the chart) 03:45 03:37 02/08/2020 03:37 Discharged to Home. Impression: Fall-Mechanical; Back Contusion. mt2 Condition is Stable. Forms are Medication Reconciliation Form, Thank You Letter, Antibiotic Education, Prescription Opioid Use. Follow up: Private Physician; When: 1 - 2 days; Reason: Worsening of condition, Recheck today's complaints, Continuance of care, Re-evaluation by your physician. Problem is new. Symptoms have improved. mh7
--- NOTE | 2020-02-08 03:38 | ER ---
Nurse's Notes [facility] Name: Tyler Carson Age: 49 yrs Sex: Male : 1970 Arrival Date: 02/08/2020 Time: 01:37 Bed 7 Private MD: Diagnosis: Fall-Mechanical;Back Contusion Presentation: 02/07 01:45 Chief complaint: Patient states: he had a fall yesterday/ slipped and hit his head and mg2 back on the ground. he has pain mostly in the left side of the back. he can't tolerate sitting. on blood thinner, had heart stent put in last month. he was also COVID positive last month. Care prior to arrival: None. Mechanism of Injury: Fall from standing position. Trauma event details: Injury occurred in the [facility], Injury occurred: at home. Injury occurred: February 06, 2020. 01:45 Method Of Arrival: Ambulatory mg2 01:45 Acuity: NISH 2 mg2 01:45 Risk Assessment: Do you want to hurt yourself or someone else? Patient reports no mg2 desire to harm self or others. Onset of symptoms was February 07, 2020. 02:07 Coronavirus screen: Client denies travel out of the [place] in the last 14 days. Client mg2 reports previous positive COVID test result. Date of collection: December 2019. Ebola Screen: No symptoms or risks identified at this time. Initial Sepsis Screen: Does the patient meet any 2 criteria? No. Patient's initial sepsis screen is negative. Does the patient have a suspected source of infection? No. Patient's initial sepsis screen is negative. Trauma Activation: Alert Physician: ED Physician; Name: dr Saenz; Notified At: 01:50; Arrived At: 01:50 Physician: General Surgeon; Name: ; Notified At: 01:50; Arrived At: Physician: Radiology; Name: ; Notified At: 01:50; Arrived At: Physician: Respiratory; Name: ; Notified At: 01:50; Arrived At: Physician: Lab; Name: ; Notified At: 01:50; Arrived At: Historical: - Allergies: 01:52 No Known Allergies; mg2 - Home Meds: 01:52 BP medicine [Active]; blood thinner [Active]; mg2 - PMHx: 01:52 Hypertension; Myocardial infarction; mg2 - PSHx: 01:52 Heart stents; mg2 - Immunization history: Last tetanus immunization: unknown. - Social history:: Smoking status: Patient reports the use of cigarette tobacco products, smokes one-half pack cigarettes per day, Patient/guardian denies using alcohol, street drugs, IV drugs. Screenin:52 Abuse screen: Denies threats or abuse. Denies injuries from another. Nutritional mg2 screening: No deficits noted. Tuberculosis screening: No symptoms or risk factors identified. Fall risk At risk due to injury, prior history of falls. 02:07 Fall Risk Fall in past 12 months (25 points). IV access (20 points). mg2 Primary Survey: 02:06 NO uncontrolled hemorrhage observed. A: The patient is alert. Airway: patent. mg2 Breathing/Chest: Respiratory pattern: regular, Respiratory effort: spontaneous, unlabored, Breath sounds: clear. Circulation: Skin color: pink. Disability Alert. Exposure/Environment: All clothing and personal items were removed. Forensic evidence collection is not deemed to be indicated at this time. Items placed in patient belonging bag. There is no evidence of uncontrolled external bleeding. Obvious injury(ies) are noted at this time: pain in the left lank. 02:57 Reassessment Airway Airway Patent Breathing/Chest Respiratory pattern Regular mg2 Respiratory effort Spontaneous Unlabored Breath sounds Clear Chest inspection Symmetrical Circulation Color Goodwell Disability Alert. Secondary Survey: 02:00 : Reports pain in left flank(s). mg2 02:56 HEENT: No deficits noted. Gastrointestinal: No deficits noted. mg2 Assessment: 01:50 General: Appears in no apparent distress. uncomfortable, Behavior is calm, cooperative. mg2 Pain: Complains of pain in back. Neuro: Level of Consciousness is awake, alert, obeys commands, Oriented to person, place, time, situation. EENT: No signs and/or symptoms were reported regarding the EENT system. Cardiovascular: Capillary refill < 3 seconds Patient's skin is warm and dry. Respiratory: Airway is patent Respiratory effort is even, unlabored, Respiratory pattern is regular, symmetrical. GI: No signs and/or symptoms were reported involving the gastrointestinal system. : No signs and/or symptoms were reported regarding the genitourinary system. Derm: Skin is intact, is healthy with good turgor, Skin is pink, warm \T\ dry. normal. Musculoskeletal: Circulation, motion, and sensation intact. Capillary refill < 3 seconds, Reports pain in back. 03:38 Reassessment: Patient and/or family updated on plan of care and expected duration. Pain mt2 level reassessed. Patient is alert, oriented x 3, equal unlabored respirations, skin warm/dry/pink. General: Appears comfortable, Behavior is cooperative. Pain: Denies pain. Vital Signs: 02:05 BP 115 / 76; Pulse 77; Resp 18; Temp 98.5; Pulse Ox 100% on R/A; Weight 79.38 kg; mg2 Height 5 ft. 6 in. (167.64 cm); Pain 10/10; 02:57 Pulse 61; Resp 18; Pulse Ox 97% on R/A; mg2 03:06 BP 116 / 83; Pulse 94; Resp 16; Pulse Ox 97% ; Pain 5/10; mt2 02:05 Body Mass Index 28.25 (79.38 kg, 167.64 cm) mg2 Cochran Coma Score: 02:05 Eye Response: spontaneous(4). Verbal Response: oriented(5). Motor Response: obeys mg2 commands(6). Total: 15. 02:57 Eye Response: spontaneous(4). Verbal Response: oriented(5). Motor Response: obeys mg2 commands(6). Total: 15. Trauma Score (Adult): 02:05 Eye Response: spontaneous(1); Verbal Response: oriented(1); Motor Response: obeys mg2 commands(2); Systolic BP: > 89 mm Hg(4); Respiratory Rate: 10 to 29 per min(4); Mariel Score: 15; Trauma Score: 12 02:57 Eye Response: spontaneous(1); Verbal Response: oriented(1); Motor Response: obeys mg2 commands(2); Systolic BP: > 89 mm Hg(4); Respiratory Rate: 10 to 29 per min(4); Cochran Score: 15; Trauma Score: 12 ED Course: 01:37 Patient arrived in ED. bp1 01:40 Lea Baker RN is Primary Nurse. mt2 01:42 Pepe Saenz MD is Attending Physician. mh7 01:50 Triage completed. mg2 01:57 Patient has correct armband on for positive identification. mg2 02:00 Inserted saline lock: 20 gauge in right antecubital area, using aseptic technique. mg2 Blood collected. 02:06 No provider procedures requiring assistance completed. Patient maintains SpO2 mg2 saturation greater than 95% on room air. 02:07 Thermoregulation: warm blanket given to patient. mg2 02:08 Arm band placed on. mg2 02:33 Chest Abdomen Pelvis W Con CT In Process Unspecified. EDMS 03:44 IV discontinued, intact, bleeding controlled, No redness/swelling at site. Pressure mt2 dressing applied. Administered Medications: 02:05 Drug: morphine 4 mg Route: IVP; Site: right antecubital; mg2 02:51 Follow up: Response: No adverse reaction; Pain is decreased mt2 02:05 Drug: Zofran (Ondansetron) 4 mg Route: IVP; Site: right antecubital; mg2 02:51 Follow up: Response: No adverse reaction; Nausea is decreased mt2 Intake: 02:05 PO: 0ml; Total: 0ml. mg2 Outcome: 03:37 Discharge ordered by . Supriya 03:38 Discharged to home mt2 03:38 Discharged to home ambulatory. 03:38 Condition: good 03:38 Discharge instructions given to patient, Instructed on discharge instructions, follow up and referral plans. medication usage, Demonstrated understanding of instructions, follow-up care, medications, Prescriptions given X 2. 03:44 Patient's length of stay was not longer than 2 hours. mt2 03:45 Patient left the ED. mt2 Signatures: Dispatcher [employer] EDMS Shay Cronin RN RN mg2 Magalys Kendall Maurice, MD MD [facility] Lea Baker RN RN mt2 Corrections: (The following items were deleted from the chart) 02:07 01:45 Acuity: NISH 3 mg2 mg2
[2020-02-08 03:49] VITALS: TEMP 98.5
[2020-02-08 03:51] VITALS: O2SAT 97
[2020-02-08 03:52] VITALS: BP 116/83
--- NOTE | 2020-02-08 16:25 | RAD REPORT ---
EXAM DESCRIPTION: CT - Chest Abdomen Pelvis W Cont - 02/08/2020 6:45 am CLINICAL HISTORY: The patient is 49 years old and is Male; TRAUMA pain TECHNIQUE: Axial computed tomography images of the chest, abdomen and pelvis with intravenous contra st. Sagittal and coronal reformatted images were created and reviewed. This CT exam was performed using one or more of the following dose reduction techniques: automated exposure control, adjustme nt of the mA and/or kV according to patient size, and/or use of iterative reconstruction technique. COMPARISON: No relevant prior studies available. FINDINGS: CHEST: LUNGS: The lungs are hyperinflated. Bilateral centrilobular emphysematous change of the lungs is noted. Scarring/atelectasis within the lingula and right lower lobe is noted. PLEURAL SPACE: Unremarkable. No significant effusion. No pneumothorax. HEART: No cardiomegaly. No pericardial effusion. ABDOMEN: LIVER: Unremarkable. No mass. GALLBLADDER AND BILE DUCTS: The gallbladder is contracted. PANCREAS: No ductal dilation. No mass. SPLEEN: Unremarkable. ADRENALS: Unremarkable. No mass. KIDNEYS AND URETERS: Unremarkable. The kidneys enhance symmetrically. No obstructing renal or ur eteral calculus is seen. No hydronephrosis or hydroureter. No perinephric fluid or stranding. STOMACH AND BOWEL: The stomach is decompressed. The small bowel is normal in caliber. A moderate amount stool is present throughout colon. There is no mucosal thickening or evidence of bowel obstru ction. PELVIS: APPENDIX: The appendix is normal in caliber without surrounding inflammation. BLADDER: Unremarkable. No mass. REPRODUCTIVE: Unremarkable as visualized. CHEST, ABDOMEN and PELVIS: INTRAPERITONEAL SPACE: Unremarkable. No significant fluid collection. No free air. BONES/JOINTS: There is no acute fracture of the visualized axial and appendicular skeleton. SOFT TISSUES: The soft tissues are normal. VASCULATURE: Atherosclerosis of the vasculature is present. No aortic aneurysm. LYMPH NODES: Unremarkable. No enlarged lymph nodes. IMPRESSION: No evidence of solid organ injury or traumatic bony findings on this contrasted CT of th e chest, abdomen, and pelvis. Electronically signed by: Bebe Fu MD 02/08/2020 2:44 AM CDT Due to temporary technical issues with the PACS/Fluency reporting system, reports are being signed by the in house radiologist without Review as a courtesy to ensure prompt reporting. The interpreting radiologist is fully responsible fo r the content of the report.
== END 2020-02-08 03:45 | disposition home or self-care (01) ==
LOC: ER 01:35
DX: S20.222A Contusion of left back wall of thorax, initial encounter (principal); W01.0XXA Fall on same level from slipping, tripping and stumbling without subsequent striking against object, initial encounter; Y93.01 Activity, walking, marching and hiking; Y92.89 Other specified places as the place of occurrence of the external cause; I10 Essential (primary) hypertension; I25.2 Old myocardial infarction; F17.210 Nicotine dependence, cigarettes, uncomplicated; Z95.818 Presence of other cardiac implants and grafts
CPT/HCPCS: 36415; 71260; 74177; 80048; 80076; 82565; 85025; 85610; 85730; 86850; 86900; 86901; 96374; 96375; 99284; G0390; J2405; Q9967

== ENCOUNTER 2020-02-08 23:58 | Emergency (ER) | payer SELFPAY ==
--- OUTSIDE RECORDS SUMMARY | 2020-02-09 | XMS REPORT | Continuity of Care Document ---
:1970 Author Organization [facility] t Address [address] [place] [address] Care Team Providers Name Role Phone Meron [...] Facility Department ID 2020-01-03 2020-01-04 Emergency Meron [facility] [id number] 21:11:00 02:40:00 Dragan Peralta [id number] [place] [id number] [place] [phone] [id number] Results This patient has no known results.
[2020-02-09] MEDS ORDERED: LIDOCAINE 4% PATCH ONE (00:37)
--- NOTE | 2020-02-09 01:02 | EDPHYS ---
Physician Documentation [facility] Name: Tyler Carson Age: 49 yrs Sex: Male : 1970 Arrival Date: 02/09/2020 Time: 00:01 Bed 16 Private MD: ED Physician Pepe Saenz HPI: 02/08 00:26 This 49 yrs old Male presents to ER via EMS with complaints of Left Back Pain.mh7 00:26 The patient presents with pain and contusion, and an injury. The symptoms are located mh7 in the left subscapular area. 00:27 Onset: The symptoms/episode began/occurred 2 day(s) ago. The pain does not radiate. mh7 Associated signs and symptoms: Pertinent negatives: abdominal pain, chest pain, constipation, dysuria, fever, headache, hematuria, incontinence, nausea, numbness, tingling, urinary retention, vomiting, weakness. The problem was sustained during a fall, while walking. Modifying factors: The patient symptoms are alleviated by remaining still, the patient symptoms are aggravated by movement. Severity of symptoms: At their worst the symptoms were moderate, yesterday, in the emergency department the symptoms have improved, mildly. The patient has been recently seen at the [facility] Emergency Department, yesterday. 06:26 Patient was seen here yesterday for same complaint which occurred after slipping on wet 7 stairs and landing on left upper back. Work up was without significant findings including CT Chest/Abdomen/pelvis. He denies any recurrent injury, chest pain, SOB, abdominal pain, nausea, vomiting, numbness/tingling, or weakness.. Historical: - Allergies: 00:06 No Known Allergies; mg2 - Home Meds: 00:06 blood thinner [Active]; BP medicine [Active]; mg2 - PMHx: 00:06 Hypertension; Myocardial infarction; mg2 - PSHx: 00:06 Heart stents; mg2 - Immunization history:: Flu vaccine status is unknown. - Social history:: Smoking status: unknown Patient/guardian denies using alcohol, street drugs, IV drugs. ROS: 00:27 Constitutional: Negative for fever, chills, and weight loss, Eyes: Negative for injury, mh7 pain, redness, and discharge, ENT: Negative for injury, pain, and discharge, Neck: Negative for injury, pain, and swelling, Cardiovascular: Negative for chest pain, palpitations, and edema, Respiratory: Negative for shortness of breath, cough, wheezing, and pleuritic chest pain, Abdomen/GI: Negative for abdominal pain, nausea, vomiting, diarrhea, and constipation, : Negative for injury, bleeding, discharge, and swelling, MS/Extremity: Negative for injury and deformity, Skin: Negative for injury, rash, and discoloration, Neuro: Negative for headache, weakness, numbness, tingling, and seizure. Exam: 00:27 Constitutional: This is a well developed, well nourished patient who is awake, alert, mh7 and in no acute distress. Head/Face: Normocephalic, atraumatic. Eyes: Pupils equal round and reactive to light, extra-ocular motions intact. Lids and lashes normal. Conjunctiva and sclera are non-icteric and not injected. Cornea within normal limits. Periorbital areas with no swelling, redness, or edema. Neck: Trachea midline, no thyromegaly or masses palpated, and no cervical lymphadenopathy. Supple, full range of motion without nuchal rigidity, or vertebral point tenderness. No Meningismus. Chest/axilla: Normal chest wall appearance and motion. Nontender with no deformity. No lesions are appreciated. Cardiovascular: Regular rate and rhythm with a normal S1 and S2. No gallops, murmurs, or rubs. Normal PMI, no JVD. No pulse deficits. Respiratory: Lungs have equal breath sounds bilaterally, clear to auscultation and percussion. No rales, rhonchi or wheezes noted. No increased work of breathing, no retractions or nasal flaring. Abdomen/GI: Soft, non-tender, with normal bowel sounds. No distension or tympany. No guarding or rebound. No evidence of tenderness throughout. 00:27 Skin: Warm, dry with normal turgor. Normal color with no rashes, no lesions, and no evidence of cellulitis. MS/ Extremity: Pulses equal, no cyanosis. Neurovascular intact. Full, normal range of motion. Neuro: Awake and alert, GCS 15, oriented to person, place, time, and situation. Cranial nerves II-XII grossly intact. Motor strength 5/5 in all extremities. Sensory grossly intact. Cerebellar exam normal. Normal gait. Psych: Awake, alert, with orientation to person, place and time. Behavior, mood, and affect are within normal limits. 00:27 Back: pain, that is moderate, of the left subscapular area, ROM is painful, normal spinal alignment noted, CVA tenderness, is absent, vertebral tenderness, is not appreciated, muscle spasm, is not present. Vital Signs: 00:01 BP 132 / 83; Pulse 64; Resp 18; Temp 97.8; Pulse Ox 95% on R/A; Weight 79.38 kg; Height mg2 5 ft. 3 in. (160.02 cm); Pain 8; 00:01 Body Mass Index 31.00 (79.38 kg, 160.02 cm) mg2 MDM: 00:25 Patient medically screened. [facility] 06:26 Differential diagnosis: arthritis, chronic back pain, Fracture Contusion. [facility] 06:26 Data reviewed: old medical records. [facility] Administered Medications: 00:30 Drug: Lidoderm 5 % (700 mg/patch) 1 patches {Note: left upper back.} Route: Topical; mg2 Site: affected area; 00:41 Follow up: Response: No adverse reaction; Medication administered at discharge. mg2 Disposition: 02/09/20 01:01 Patient has left against medical advice. - Patients states they are going to Home. - Condition is Stable. Signatures: Shay Cronin RN RN [place] Pepe Saenz MD MD [facility]
--- NOTE | 2020-02-09 01:02 | ER ---
Nurse's Notes [facility] Name: Tyler Carson Age: 49 yrs Sex: Male : 1970 Arrival Date: 02/09/2020 Time: 00:01 Bed 16 Private MD: Diagnosis: Presentation: 02/08 00:01 Chief complaint: EMS states: he was here seen here last night for the left flank pain mg2 and came back with the same problem. pain was so intolerable. IV Tylenol 1 gm given. Coronavirus screen: Client denies travel out of the [place] in the last 14 days. At this time, the client does not indicate any symptoms associated with coronavirus-19. Ebola Screen: No symptoms or risks identified at this time. Initial Sepsis Screen: Does the patient meet any 2 criteria? No. Patient's initial sepsis screen is negative. Does the patient have a suspected source of infection? No. Patient's initial sepsis screen is negative. Risk Assessment: Do you want to hurt yourself or someone else? Patient reports no desire to harm self or others. Onset of symptoms was February 07, 2020. 00:01 Method Of Arrival: [place] [facility] [place] Acuity: NISH 3 mg2 Triage Assessment: 00:07 General: Appears in no apparent distress. comfortable, Behavior is calm, cooperative. mg2 Pain: Complains of pain in left flank. EENT: No signs and/or symptoms were reported regarding the EENT system. Neuro: Level of Consciousness is awake, alert, obeys commands, Oriented to person, place, time, situation. Cardiovascular: Capillary refill < 3 seconds Patient's skin is warm and dry. Respiratory: Airway is patent Respiratory effort is even, unlabored, Respiratory pattern is regular, symmetrical. GI: No signs and/or symptoms were reported involving the gastrointestinal system. : No signs and/or symptoms were reported regarding the genitourinary system. Derm: Skin is intact, is healthy with good turgor. Musculoskeletal: Circulation, motion, and sensation intact. Capillary refill < 3 seconds, Reports pain in left flank. Historical: - Allergies: 00:06 No Known Allergies; mg2 - Home Meds: 00:06 blood thinner [Active]; BP medicine [Active]; mg2 - PMHx: 00:06 Hypertension; Myocardial infarction; mg2 - PSHx: 00:06 Heart stents; mg2 - Immunization history:: Flu vaccine status is unknown. - Social history:: Smoking status: unknown Patient/guardian denies using alcohol, street drugs, IV drugs. Screenin:09 Abuse screen: Denies threats or abuse. Denies injuries from another. Nutritional mg2 screening: No deficits noted. Tuberculosis screening: No symptoms or risk factors identified. Fall Risk Fall in past 12 months (25 points). Assessment: 00:08 General: see triage assessment. mg2 00:35 Reassessment: PATIENT ON PHONE WALKING AROUND ROOM, NO SIGNS OF DISTRESS NOTED. vc 00:41 Reassessment: patient not happy with the treatment,. he said he wants to leave and find mg2 another hospital or doctor. he left walking. provider informed. Vital Signs: 00:01 BP 132 / 83; Pulse 64; Resp 18; Temp 97.8; Pulse Ox 95% on R/A; Weight 79.38 kg; Height mg2 5 ft. 3 in. (160.02 cm); Pain 8/10; 00:01 Body Mass Index 31.00 (79.38 kg, 160.02 cm) mg2 ED Course: 00:01 Patient arrived in ED. mg2 00:02 Debi Gaxiola RN is Primary Nurse. vc 00:06 Triage completed. mg2 00:07 Arm band placed on. mg2 00:09 Patient has correct armband on for positive identification. mg2 00:09 No provider procedures requiring assistance completed. Maintain EMS IV. Dressing mg2 intact. Good blood return noted. Site clean \T\ dry. Gauge \T\ site: 18 \T\ RAC. 00:16 Pepe Saenz MD is Attending Physician. mh7 01:00 IV discontinued, intact, bleeding controlled, No redness/swelling at site. Pressure mg2 dressing applied. Administered Medications: 00:30 Drug: Lidoderm 5 % (700 mg/patch) 1 patches {Note: left upper back.} Route: Topical; mg2 Site: affected area; 00:41 Follow up: Response: No adverse reaction; Medication administered at discharge. mg2 Outcome: 01:00 AMA Left before signing form. mg2 01:00 Condition: stable 01:01 Patient left the ED. mg2 Signatures: Shay Cronin RN RN mg2 Debi Gaxiola RN RN Pepe Saenz MD MD mh7 Corrections: (The following items were deleted from the chart) 02:17 00:41 Reassessment: patient not happy with the treatment,. he left. provider informed,. mg2 mg2 02:20 00:41 Reassessment: patient not happy with the treatment,. he left. provider informed,. mg2 mg2
[2020-02-09 03:32] VITALS: BP 132/83; TEMP 97.8; O2SAT 95
== END 2020-02-09 01:01 | disposition left against medical advice (07) ==
LOC: ER 23:58
DX: M54.9 Dorsalgia, unspecified (principal); W01.0XXA Fall on same level from slipping, tripping and stumbling without subsequent striking against object, initial encounter; Y93.01 Activity, walking, marching and hiking; Y92.9 Unspecified place or not applicable; I10 Essential (primary) hypertension; I25.2 Old myocardial infarction; Z95.818 Presence of other cardiac implants and grafts
CPT/HCPCS: 99283

== ENCOUNTER → 2023-05-27 | Emergency (ER) | payer SELFPAY ==
--- OUTSIDE RECORDS SUMMARY | 2023-05-27 13:56 | XMS REPORT | Continuity of Care Document ---
Author Name Unknown Address [address] [place] [address] [facility] Address [address] [place] [address] Care Team Providers Care Histopath Tech Name Role Phone Dragan Chance MD Attending Clinician DRAGAN CHANCE Attending Clinician Unavailable Allergies, Adverse Reactions, Alerts Allergy Name Allergy Type Status Severity Reaction(s) Onset Date Inactive Date Treating Clinician Comments Source NO KNOWN ALLERGIE S Drug Class Active [facility] Encounters Start Date/Time End Date/Time Encounter Type Admission Type Attending Clinicians Care Facility Care Department Encounter ID Source 2020-02-09 01:36:00 2020-02-09 01:36:00 Emergency [facility] [id number] [facility] 2020-01-03 21:11:00 2020-01-04 02:40:00 Emergency Dragan Chance [facility] [id number] 2020-01-03 21:11:00 2020-01-03 21:11:00 Emergency X DRAGAN CHANCE [facility] [id number] [facility]
--- NOTE | 2023-05-27 15:18 | RAD REPORT ---
EXAM DESCRIPTION: CT - Head Brain Wo Cont - 05/27/2023 3:10 pm CLINICAL HISTORY: SEIZURE COMPARISON: Chest Abdomen Pelvis W Cont dated 02/08/2020 TECHNIQUE: All CT scans are performed using dose optimization technique as appropriate and may inclu de automated exposure control or mA/KV adjustment according to patient size. FINDINGS: No intracranial hemorrhage, hydrocephalus or extra-axial fluid collection.No areas of brai n edema or evidence of midline shift. Ethmoid air cell thickening is present. Air-fluid level left maxillary sinus. The calvarium is intact . IMPRESSION: No acute intracranial abnormality.
[2023-05-27 15:21] LABS: Absolute Lymphocytes (CBC) 1.3 K/uL (0.7-4.9); Hematocrit 49.5 % (39.6-49.0); Lymphocytes % 15.2 % (15.3-44.8); MCV 92.1 fL (80-100); MPV 9.8 fL (7.6-11.3); Platelets 170 thou/uL (152-406); RBC Red Blood Cell Count 5.37 M/uL (4.33-5.43)
--- NOTE | 2023-05-27 15:28 | RAD REPORT ---
EXAM DESCRIPTION: RAD - Chest Single View - 05/27/2023 3:20 pm CLINICAL HISTORY: syncope COMPARISON: Chest Single View dated 01/08/2020 FINDINGS: Lines: None. Lungs: No evidence of edema or pneumonia. Pleural: No significant pleural effusions or pneumothorax. Cardiac: The heart size is within normal limits. Mediastinum: Within normal limits. Bones: No acute fractures. Other: None IMPRESSION: No acute cardiopulmonary disease.
[2023-05-27 15:40] LABS: ALT/SGPT 31 U/L (16-61); AST/SGOT 19 U/L (15-37); Albumin 3.6 g/dL (3.4-5.0); Alkaline Phosphatase 53 U/L (45-117); BUN Blood Urea Nitrogen 12 mg/dL (7-18); Bicarbonate 24 mEq/L (21-32); Bilirubin Total 0.3 mg/dL (0.2-1.0); Glomerular Filtration Rate 64 ml/min (=/>90); Glucose Level 131 mg/dL (74-106); Magnesium 1.9 mg/dL (1.6-2.4); NT PRO-BNP 173 pg/mL (<125); Potassium 4.3 mEq/L (3.5-5.1); Sodium Level 134 mEq/L (136-145); Troponin High Sensitivity 17.1 pg/mL (<58.9)
[2023-05-27 15:41] LABS: Bilirubin Direct < 0.1 mg/dL (0-0.2); Bilirubin Indirect, Calculated ND mg/dL (0.2-0.8)
--- NOTE | 2023-05-27 16:41 | ER ---
Nurse's Notes [facility] Name: Tyler Carson Age: 52 yrs Sex: Male : 1970 Arrival Date: 05/27/2023 Time: 13:54 Bed 5 Private MD: Diagnosis: Altered mental status, unspecified;Syncope Near;Vasovagal syncope;Drug interaction: Dextromethoraphn \T\ Lexapro Presentation: 05/27 14:21 Chief complaint: Family at bedside reports seizure activity that lasted approx 1 hb minute, pt was post ictal afterwards. Pt reports near syncopal episode x 2 today, body aches, chills, headache, and N/V since yesterday. Coronavirus screen: At this time, the client does not indicate any symptoms associated with coronavirus-19. Ebola Screen: No symptoms or risks identified at this time. Initial Sepsis Screen: Does the patient meet any 2 criteria? No. Patient's initial sepsis screen is negative. Does the patient have a suspected source of infection? No. Patient's initial sepsis screen is negative. Risk Assessment: Do you want to hurt yourself or someone else? Patient reports no desire to harm self or others. Onset of symptoms was May 26, 2023. 14:21 Method Of Arrival: Ambulatory hb 14:21 Acuity: NISH 3 hb Historical: - Allergies: 14:23 No Known Allergies; hb - Home Meds: 14:23 losartan 25 mg oral tablet daily [Active]; escitalopram oxalate 10 mg oral tablet daily hb [Active]; nitroglycerin 0.4 mg SL Tablet, Sublingual [Active]; nitroglycerin 0.4 mg SL Tablet, Sublingual [Active]; rosuvastatin 40 mg oral tablet daily [Active]; clopidogrel 75 mg oral tablet [Active]; - PMHx: 14:23 Hypertension; Myocardial infarction; hb - Immunization history:: Adult Immunizations up to date. - Social history:: Smoking status: Patient reports the use of cigarette tobacco products. Screenin:29 [facility] ED Fall Risk Assessment (Adult) History of falling in the last 3 months, kc6 including since admission No falls in past 3 months (0 pts) Confusion or Disorientation No (0 pts) Intoxicated or Sedated No (0 pts) Impaired Gait No (0 pts) Mobility Assist Device Used No (0 pt) Altered Elimination No (0 pt) Score/Fall Risk Level 0 - 2 = Low Risk. Abuse screen: Denies threats or abuse. Denies injuries from another. Nutritional screening: No deficits noted. Tuberculosis screening: No symptoms or risk factors identified. Assessment: 14:30 General: Appears in no apparent distress. comfortable, well groomed, well developed, kc6 Behavior is calm, cooperative, appropriate for age, Reports chills for feeling ill for. Neuro: Level of Consciousness is awake, alert, obeys commands, Oriented to person, place, time, situation, Appropriate for age Reports headache weakness Seizure activity reported prior to arrival. Cardiovascular: Denies chest pain, Heart tones S1 S2 present Capillary refill < 3 seconds Rhythm is sinus rhythm. Respiratory: Airway is patent Trachea midline Respiratory effort is even, unlabored, Respiratory pattern is regular, symmetrical, Denies shortness of breath. GI: Abdomen is round non-distended, Reports nausea, vomiting, Patient currently denies abdominal pain, diarrhea. : No signs and/or symptoms were reported regarding the genitourinary system. EENT: No signs and/or symptoms were reported regarding the EENT system. Derm: No signs and/or symptoms reported regarding the dermatologic system. Skin is intact, is healthy with good turgor, Skin is pink, warm \T\ dry. Musculoskeletal: No signs and/or symptoms reported regarding the musculoskeletal system. Circulation, motion, and sensation intact. Capillary refill < 3 seconds, Range of motion: intact in all extremities. 15:25 Reassessment: Patient appears in no apparent distress at this time. No changes from kc6 previously documented assessment. Patient and/or family updated on plan of care and expected duration. Pain level reassessed. Patient is alert, oriented x 3, equal unlabored respirations, skin warm/dry/pink. 16:55 Reassessment: Patient appears in no apparent distress at this time. No changes from kc6 previously documented assessment. Patient and/or family updated on plan of care and expected duration. Pain level reassessed. Patient is alert, oriented x 3, equal unlabored respirations, skin warm/dry/pink. Vital Signs: 14:21 BP 124 / 89; Pulse 77; Resp 16; Temp 98.3(O); Pulse Ox 99% on R/A; Weight 70.31 kg; hb Height 5 ft. 6 in. ; Pain 4/10; 15:25 BP 120 / 84; Pulse 72; Resp 17 S; Pulse Ox 97% on R/A; kc6 14:21 Body Mass Index 25.02 (70.31 kg, 167.64 cm) hb 14:21 Pain Scale: Adult hb ED Course: 13:59 Patient arrived in ED. mg5 14:00 Manolo Zhang MD is Attending Physician. kdr 14:13 Lorna Sousa, RN is Primary Nurse. kc6 14:23 Triage completed. hb 14:27 Arm band placed on. hb 14:29 Patient has correct armband on for positive identification. Bed in low position. Call kc6 light in reach. Side rails up X2. Adult w/ patient. Seizure precautions initiated. Client placed on continuous cardiac and pulse oximetry monitoring. NIBP monitoring applied. air sampling and monitoring on. 14:29 Inserted saline lock: 20 gauge in right antecubital area, using aseptic technique. kc6 Blood collected. Patient maintains SpO2 saturation greater than 95% on room air. 15:12 CT Head Brain wo Cont In Process Unspecified. EDMS 15:22 XRAY Chest (1 view) In Process Unspecified. EDMS 16:55 No provider procedures requiring assistance completed. IV discontinued, intact, kc6 bleeding controlled, No redness/swelling at site. Pressure dressing applied. Administered Medications: No medications were administered Medication: 16:55 VIS not applicable for this client. kc6 Outcome: 16:41 Discharge ordered by . kdr 16:55 Discharged to home ambulatory, with friend, kc6 16:55 Condition: improved 16:55 Discharge instructions given to patient, Instructed on discharge instructions, follow up and referral plans. Demonstrated understanding of instructions, follow-up care, 16:55 Patient left the ED. kc6 Signatures: Dispatcher [employer] EDMS Manolo Zhang MD MD [facility] Heather Girard RN RN Lorna Sousa RN RN [facility] Jolene Avila [facility]
--- NOTE | 2023-05-27 16:41 | EDPHYS ---
Physician Documentation [facility] Name: Tyler Carson Age: 52 yrs Sex: Male : 1970 Arrival Date: 05/27/2023 Time: 13:54 Bed 5 Private MD: ED Physician Manolo Zhang HPI: 05/27 17:05 This 52 yrs old Male presents to ER via Ambulatory with complaints of Probable Seizure. kdr 17:06 Patient and friend reports that he had a seizure earlier today that lasted about a kdr minute. The patient does not have a seizure history. Patient does have a history of syncope post noxious stimuli. Patient at the time of today's syncopal episode was having the urge to vomit and was trying to run to the bathroom with a towel over his mouth when he began to gag and had a subsequent syncopal episode followed by what a bystander (knowledgeable and identifying seizure activity) witnessed what he thought was a seizure that lasted about a minute. Patient otherwise at this time feels fine and back to baseline. Patient has no other complaints no other injuries or concerns. Patient is stable and not requiring emergent intervention at the time of his initial presentation to the ED. Onset: The symptoms/episode began/occurred this morning. Severity of symptoms: At their worst the symptoms were incapacitating in the emergency department the symptoms have resolved. The patient has several similar incidents over his lifetime usually associated with some type of noxious stimuli or injury. The patient has not recently seen a physician. Historical: - Allergies: 14:23 No Known Allergies; hb - Home Meds: 14:23 losartan 25 mg oral tablet daily [Active]; escitalopram oxalate 10 mg oral tablet daily hb [Active]; nitroglycerin 0.4 mg SL Tablet, Sublingual [Active]; nitroglycerin 0.4 mg SL Tablet, Sublingual [Active]; rosuvastatin 40 mg oral tablet daily [Active]; clopidogrel 75 mg oral tablet [Active]; - PMHx: 14:23 Hypertension; Myocardial infarction; hb - Immunization history:: Adult Immunizations up to date. - Social history:: Smoking status: Patient reports the use of cigarette tobacco products. ROS: 17:06 Constitutional: Negative for fever, chills, and weight loss, Eyes: Negative for injury, kdr pain, redness, and discharge, ENT: Negative for injury, pain, and discharge, Neck: Negative for injury, pain, and swelling, Cardiovascular: Negative for chest pain, palpitations, and edema, Respiratory: Negative for shortness of breath, cough, wheezing, and pleuritic chest pain, Back: Negative for injury and pain, : Negative for injury, bleeding, discharge, and swelling, MS/Extremity: Negative for injury and deformity, Skin: Negative for injury, rash, and discoloration, Neuro: Negative for headache, weakness, numbness, tingling, and seizure activity. Psych: Negative for depression, anxiety, suicide ideation, homicidal ideation, and hallucinations, Allergy/Immunology: Negative for hives, rash, and allergies, Endocrine: Negative for neck swelling, polydipsia, polyuria, polyphagia, and marked weight changes, Hematologic/Lymphatic: Negative for swollen nodes, abnormal bleeding, and unusual bruising, 17:06 Neuro: Positive for Seizure-like activity observed by a friend who has a son with a seizure history. The friend reports that the seizure like activity lasted approximately 1 minute without any apparent postictal period, Exam: 17:06 Constitutional: This is a well developed, well nourished patient who is awake, alert, kdr and in no acute distress. Head/Face: Normocephalic, atraumatic. Eyes: Pupils equal round and reactive to light, extra-ocular motions intact. Lids and lashes normal. Conjunctiva and sclera are non-icteric and not injected. Cornea within normal limits. Periorbital areas with no swelling, redness, or edema. Neck: Trachea midline, no thyromegaly or masses palpated, and no cervical lymphadenopathy. Supple, full range of motion without nuchal rigidity, or vertebral point tenderness. No Meningismus. Chest/axilla: Normal chest wall appearance and motion. Nontender with no deformity. No lesions are appreciated. Cardiovascular: Regular rate and rhythm with a normal S1 and S2. No gallops, murmurs, or rubs. Normal PMI, no JVD. No pulse deficits. Respiratory: Lungs have equal breath sounds bilaterally, clear to auscultation and percussion. No rales, rhonchi or wheezes noted. No increased work of breathing, no retractions or nasal flaring. Abdomen/GI: Soft, non-tender, with normal bowel sounds. No distension or tympany. No guarding or rebound. No evidence of tenderness throughout. Back: No spinal tenderness. No costovertebral tenderness. Full range of motion. Skin: Warm, dry with normal turgor. Normal color with no rashes, no lesions, and no evidence of cellulitis. MS/ Extremity: Pulses equal, no cyanosis. Neurovascular intact. Full, normal range of motion. Neuro: Awake and alert, GCS 15, oriented to person, place, time, and situation. Cranial nerves II-XII grossly intact. Motor strength 5/5 in all extremities. Sensory grossly intact. Cerebellar exam normal. Normal gait. Psych: Awake, alert, with orientation to person, place and time. Behavior, mood, and affect are within normal limits. Vital Signs: 14:21 BP 124 / 89; Pulse 77; Resp 16; Temp 98.3(O); Pulse Ox 99% on R/A; Weight 70.31 kg; hb Height 5 ft. 6 in. ; Pain 4/10; 15:25 BP 120 / 84; Pulse 72; Resp 17 S; Pulse Ox 97% on R/A; kc6 14:21 Body Mass Index 25.02 (70.31 kg, 167.64 cm) hb 14:21 Pain Scale: Adult hb MDM: 16:41 Patient medically screened. kdr 17:06 Data reviewed: vital signs, nurses notes, lab test result(s), radiologic studies. [facility] 12 14:59 Order name: Basic Metabolic Panel; Complete Time: 16:31 [facility] 05/27 14:59 Order name: CBC with Diff; Complete Time: 16:31 [facility] 05/27 14:59 Order name: LFT's; Complete Time: 16:31 [facility] 05/27 14:59 Order name: Magnesium; Complete Time: 16:31 [facility] 05/27 14:59 Order name: NT PRO-BNP; Complete Time: 16:31 [facility] 05/27 14:59 Order name: Troponin HS; Complete Time: 16:31 [facility] 12 14:59 Order name: XRAY Chest (1 view); Complete Time: 16:31 [facility] 05/27 15:00 Order name: CT Head Brain wo Cont; Complete Time: 15:21 [facility] 05/27 14:59 Order name: Cardiac monitoring; Complete Time: 15:10 [facility] 05/27 14:59 Order name: EKG - Nurse/Tech; Complete Time: 15:10 [facility] 05/27 14:59 Order name: IV Saline Lock; Complete Time: 15:10 kdr 05/27 14:59 Order name: Labs collected and sent; Complete Time: 15:11 kdr 05/27 14:59 Order name: O2 Per Protocol; Complete Time: 15:11 kdr 05/27 14:59 Order name: O2 Sat Monitoring; Complete Time: 15:11 kdr Administered Medications: No medications were administered Disposition Summary: 05/27/23 16:41 Discharge Ordered Notes: Location: Home kdr Problem: new kdr Symptoms: have improved kdr Condition: Stable kdr Diagnosis - Altered mental status, unspecified kdr - Syncope Near kdr - Vasovagal syncope kdr - Drug interaction: Dextromethoraphn \T\ Lexapro kdr Followup: kdr - With: Private Physician - When: 2 - 3 days - Reason: If symptoms return, Further diagnostic work-up, Recheck today's complaints, Continuance of care, Re-evaluation by your physician Discharge Instructions: - Discharge Summary Sheet kdr - Near-Syncope kdr - Syncope kdr - Syncope, [id number] kdr Forms: - Medication Reconciliation Form kdr - Thank You Letter kdr - Patient Portal Instructions kdr - Leadership Thank You Letter kdr Signatures: Dispatcher [employer] Manolo Caraballo MD MD kdr Heather Girard, RN RN
[2023-05-27 17:29] VITALS: BP 120/84; TEMP 98.3; O2SAT 97
== END ==
LOC: ER 13:54
DX: R41.82 Altered mental status, unspecified (principal); R55 Syncope and collapse; T50.905A Adverse effect of unspecified drugs, medicaments and biological substances, initial encounter
CPT/HCPCS: 36415; 70450; 71045; 80048; 80076; 83735; 83880; 84484; 85025; 93005; 99285

== ENCOUNTER → 2023-08-14 | Emergency (ER) | payer SELFPAY ==
[~2023-08-14] MED LIST: LIDOCAINE HCL JELLY 2% 6 ML SYRINGE TOP ONE; MORPHINE 4 MG/ML SYR ONE; ONDANSETRON 4 MG (ODT) TAB ONE
--- OUTSIDE RECORDS SUMMARY | 2023-08-14 05:58 | XMS REPORT | Continuity of Care Document ---
Author Name Unknown Address [address] [facility] [address] [place] [address] [facility] thconnect Address [address] [facility] [address] [place] [address] Care Team Providers Care Hat Band Attacher Name Role Phone Dragan Chance MD Attending Clinician DRAGAN CHANCE Attending Clinician Unavailable Allergies, Adverse Reactions, Alerts Allergy Name Allergy Type Status Severity Reaction(s) Onset Date Inactive Date Treating Clinician Comments Source NO KNOWN ALLERGIE S Drug Class Active [facility] Encounters Start Date/Time End Date/Time Encounter Type Admission Type Attending Clinicians Care Facility Care Department Encounter ID Source 2020-02-09 01:36:00 2020-02-09 01:36:00 Emergency X [facility] ERT [id number] [facility] 2020-01-03 21:11:00 2020-01-04 02:40:00 Emergency Dragan Chance [facility] [id number] 2020-01-03 21:11:00 2020-01-03 21:11:00 Emergency X DRAGAN CHANCE [facility] ERT [id number] [facility]
--- NOTE | 2023-08-14 08:41 | ER ---
Nurse's Notes [facility] Name: Tyler Carson Age: 52 yrs Sex: Male : 1970 Arrival Date: 08/14/2023 Time: 05:55 Bed 17 Private MD: Juan Maddox Diagnosis: Second degree hemorrhoids Presentation: 08/13 05:57 Chief complaint: Patient states: rectal pain of 10 with hemorrhoids,onset Wednesday, worse pf1 tonight after applying lidocaine 5% topical ointment directly on the hemorrhoid, that was prescribed by Dr. Maddox for hemorrhoid pain. 05:57 Coronavirus screen: Vaccine status: Patient reports being unvaccinated. Client denies pf1 travel out of the [place] in the last 14 days. At this time, the client does not indicate any symptoms associated with coronavirus-19. Ebola Screen: Patient negative for fever greater than or equal to 101.5 degrees Fahrenheit, and additional compatible Ebola Virus Disease symptoms. Initial Sepsis Screen: Does the patient meet any 2 criteria? No. Patient's initial sepsis screen is negative. Does the patient have a suspected source of infection? No. Patient's initial sepsis screen is negative. Risk Assessment: Do you want to hurt yourself or someone else? Patient reports no desire to harm self or others. 05:57 Method Of Arrival: Ambulatory pf1 05:57 Acuity: NISH 4 pf1 Triage Assessment: 06:00 General: Appears in no apparent distress. uncomfortable, well groomed, well developed, pf1 Behavior is cooperative, appropriate for age. 06:00 Pain: Complains of pain in rectal pain Pain currently is 10 out of 10 on a pain scale. pf1 Respiratory: Airway is patent Respiratory effort is even, unlabored, Respiratory pattern is regular, symmetrical. GI: Reports hemorrhoids, Pain is 10 out of 10 on a pain scale. Historical: - Allergies: 06:18 No Known Allergies; pf1 - PMHx: 06:18 Hypertension; Myocardial infarction; Hypercholesterolemia; anxiety; pf1 06:20 hemorrhoids; pf1 - PSHx: 06:18 cardiac stents; pf1 - Immunization history:: Adult Immunizations not up to date, Client reports having NOT received the Covid vaccine. Last tetanus immunization: > 10 years ago Flu vaccine is not up to date. - Social history:: Smoking status: Patient reports the use of cigarette tobacco products, smokes one-half pack cigarettes per day, Patient uses alcohol, occasionally. street drugs, marijuana. - Family history:: not pertinent. - Hospitalizations: : No recent hospitalization is reported. Screenin:00 [facility] ED Fall Risk Assessment (Adult) History of falling in the last 3 months, pf1 including since admission No falls in past 3 months (0 pts) Confusion or Disorientation No (0 pts) Intoxicated or Sedated No (0 pts) Impaired Gait No (0 pts) Mobility Assist Device Used No (0 pt) Altered Elimination No (0 pt) Score/Fall Risk Level 0 - 2 = Low Risk Oriented to surroundings, Maintained a safe environment, Educated pt \T\ family on fall prevention, incl call for assistance when getting out of bed, Assessed \T\ reinforced patient's understanding of fall precautions, Provided non-skid footwear, Hourly rounding (assess needs \T\ fall precautionary measures) done, Used ambulatory aids as needed (educated on \T\ assisted with), Used gait belt as appropriate. 06:00 Abuse screen: Denies threats or abuse. Nutritional screening: No deficits noted. pf1 Tuberculosis screening: No symptoms or risk factors identified. Assessment: 06:00 General: Appears in no apparent distress. uncomfortable, well groomed, well developed, pf1 Behavior is calm, cooperative, appropriate for age, quiet. 06:00 Pain: Complains of pain in rectal pain Pain currently is 10 out of 10 on a pain scale. pf1 Pain began Wednesday. Neuro: No deficits noted. Level of Consciousness is awake, alert, obeys commands, Oriented to person, place, time, situation. Cardiovascular: No deficits noted. Capillary refill < 3 seconds Patient's skin is warm and dry. Respiratory: No deficits noted. Airway is patent Respiratory effort is even, unlabored, Respiratory pattern is regular, symmetrical. GI: Abdomen is round non-distended, Bowel sounds present X 4 quads. Reports hemorrhoids. : No deficits noted. No signs and/or symptoms were reported regarding the genitourinary system. EENT: Reports currently taking amoxicillin for cavities. Derm: No deficits noted. No signs and/or symptoms reported regarding the dermatologic system. Musculoskeletal: No deficits noted. No signs and/or symptoms reported regarding the musculoskeletal system. 06:49 Reassessment: Patient appears in no apparent distress at this time. No changes from pf1 previously documented assessment. Patient and/or family updated on plan of care and expected duration. Pain level reassessed. Patient is alert, oriented x 3, equal unlabored respirations, skin warm/dry/pink. 07:10 General: Appears in no apparent distress. uncomfortable, Behavior is calm, cooperative. rs5 Pain: Complains of pain in rectum Pain does not radiate. Pain currently is 9 out of 10 on a pain scale. Quality of pain is described as aching, Is continuous. Neuro: Level of Consciousness is awake, alert, obeys commands, Oriented to person, place, time, situation. Cardiovascular: Rhythm is regular. Respiratory: Respiratory effort is even, unlabored, Respiratory pattern is regular, symmetrical. 07:10 GI: Abdomen is round non-distended, Abd is soft and non tender X 4 quads. : No signs rs5 and/or symptoms were reported regarding the genitourinary system. EENT: No signs and/or symptoms were reported regarding the EENT system. Derm: Skin is intact, Skin is pink, warm \T\ dry. Musculoskeletal: Range of motion: intact in all extremities. 08:21 Reassessment: Patient and/or family updated on plan of care and expected duration. Pain rs5 level reassessed. Patient is alert, oriented x 3, equal unlabored respirations, skin warm/dry/pink. Patient denies pain at this time. Patient states feeling better. Patient states symptoms have improved. Vital Signs: 05:57 BP 150 / 80; Pulse 87; Resp 16; Temp 98.1; Pulse Ox 100% on R/A; Weight 79.38 kg; pf1 Height 5 ft. 6 in. ; Pain 10/10; 06:30 BP 140 / 79; Pulse 79; Resp 16; Pulse Ox 95% on R/A; pf1 08:43 BP 133 / 75; Pulse 76; Resp 18; Pulse Ox 99% on R/A; rs5 05:57 Body Mass Index 28.25 (79.38 kg, 167.64 cm) pf1 05:57 Pain Scale: Adult pf1 ED Course: 05:57 Patient arrived in ED. mr 05:57 Juan Maddox MD is Private Physician. mr 05:57 Arm band placed on left wrist. pf1 06:18 Triage completed. pf1 06:18 Jorge Alberto Payne MD is Attending Physician. sp4 07:01 Patient has correct armband on for positive identification. Placed in gown. Bed in low rs5 position. Call light in reach. Side rails up X2. 07:01 No provider procedures requiring assistance completed. rs5 07:09 Attending Physician role handed off by Jorge Alberto Payne MD cp3 07:09 Micah Rodriguez MD is Attending Physician. cp3 07:31 Dakotah Bell, EDEL is Primary Nurse. rs5 08:39 Juan Maddox MD is Referral Physician. cp3 08:57 Patient did not have IV access during this emergency room visit. rs5 Administered Medications: 07:30 Drug: morphine IM 4 mg IM once Route: IM; Site: left deltoid; rs5 08:10 Follow up: Response: No adverse reaction; Pain is decreased rs5 07:30 Drug: Ondansetron PO 4 mg PO once Route: PO; rs5 08:10 Follow up: Response: No adverse reaction rs5 07:30 Drug: Lidocaine Mucous Membrane Gel 2 % 1 application Mucous Membrane once; to rs5 hemorrhoid Route: Mucous Membrane; 08:10 Follow up: Response: No adverse reaction rs5 Medication: 08:43 VIS not applicable for this client. rs5 Outcome: 08:40 Discharge ordered by MD. cp3 08:57 Discharged to home ambulatory, rs5 08:57 Condition: stable 08:57 Discharge instructions given to patient, family, Instructed on discharge instructions, follow up and referral plans. medication usage, Demonstrated understanding of instructions, follow-up care, medications, Prescriptions given X 3, 08:58 Patient left the ED. rs5 Signatures: Micah Rodriguez MD MD cp3 Diane Valderrama, Zenon Reg mr LawsMaria R RN RN pf1 Dakotah Bell, EDEL RN rs5 Jorge Alberto Payne MD MD sp4
--- NOTE | 2023-08-14 08:41 | EDPHYS ---
Physician Documentation [facility] Name: Tyler Carson Age: 52 yrs Sex: Male : 1970 Arrival Date: 08/14/2023 Time: 05:55 Bed 17 Private MD: Juan Maddox ED Physician Micah Rodriguez HPI: 08/13 08:46 This 52 yrs old Male presents to ER via Ambulatory with complaints of Hemorrhoids. cp3 07:20 The patient is a 52-year-old male who presents to the ED secondary to hemorrhoid pain cp3 that started 2 days ago. Patient denies fever, chills, nausea, vomiting. Pain is rated 10 out of 10 throbbing and burning pain. Historical: - Allergies: 06:18 No Known Allergies; pf1 - PMHx: 06:18 Hypertension; Myocardial infarction; Hypercholesterolemia; anxiety; pf1 06:20 hemorrhoids; pf1 - PSHx: 06:18 cardiac stents; pf1 - Immunization history:: Adult Immunizations not up to date, Client reports having NOT received the Covid vaccine. Last tetanus immunization: > 10 years ago Flu vaccine is not up to date. - Social history:: Smoking status: Patient reports the use of cigarette tobacco products, smokes one-half pack cigarettes per day, Patient uses alcohol, occasionally. street drugs, marijuana. - Family history:: not pertinent. - Hospitalizations: : No recent hospitalization is reported. ROS: 07:20 Constitutional: Negative for fever, chills, and weight loss, Cardiovascular: Negative cp3 for chest pain, palpitations, and edema, Respiratory: Negative for shortness of breath, cough, wheezing, and pleuritic chest pain, Abdomen/GI: Negative for abdominal pain, nausea, vomiting, diarrhea, and constipation, Back: Negative for injury and pain, MS/Extremity: Negative for injury and deformity, Skin: Negative for injury, rash, and discoloration, Neuro: Negative for headache, weakness, numbness, tingling, and seizure, Exam: 07:20 Constitutional: This is a well developed, well nourished patient who is awake, alert, cp3 and in no acute distress. 07:20 Chest/axilla: Normal chest wall appearance and motion. Nontender with no deformity. No lesions are appreciated. Cardiovascular: Regular rate and rhythm with a normal S1 and S2. No gallops, murmurs, or rubs. Normal PMI, no JVD. No pulse deficits. Respiratory: Lungs have equal breath sounds bilaterally, clear to auscultation and percussion. No rales, rhonchi or wheezes noted. No increased work of breathing, no retractions or nasal flaring. Abdomen/GI: Soft, non-tender, with normal bowel sounds. No distension or tympany. No guarding or rebound. No evidence of tenderness throughout. Skin: Warm, dry with normal turgor. Normal color with no rashes, no lesions, and no evidence of cellulitis. MS/ Extremity: Pulses equal, no cyanosis. Neurovascular intact. Full, normal range of motion. Neuro: Awake and alert, GCS 15, oriented to person, place, time, and situation. Cranial nerves II-XII grossly intact. Motor strength 5/5 in all extremities. Sensory grossly intact. Cerebellar exam normal. Normal gait. Psych: Awake, alert, with orientation to person, place and time. Behavior, mood, and affect are within normal limits. 07:20 : Rectal exam: hemorrhoid(s), external, inflammed, painful, Vital Signs: 05:57 BP 150 / 80; Pulse 87; Resp 16; Temp 98.1; Pulse Ox 100% on R/A; Weight 79.38 kg; pf1 Height 5 ft. 6 in. ; Pain 10/10; 06:30 BP 140 / 79; Pulse 79; Resp 16; Pulse Ox 95% on R/A; pf1 08:43 BP 133 / 75; Pulse 76; Resp 18; Pulse Ox 99% on R/A; rs5 05:57 Body Mass Index 28.25 (79.38 kg, 167.64 cm) pf1 05:57 Pain Scale: Adult pf1 MDM: 07:09 Patient medically screened. cp3 07:20 Differential Diagnosis The differential diagnosis includes hemorrhoid, rectal fissure, cp3 thrombosed hemorrhoid which is less likely secondary to no physical exam findings to support diagnosis.. Data reviewed: vital signs, nurses notes. Consideration of Admission/Observation Escalation of care including admission/observation considered. Pain control. 08:38 Response to treatment: the patient's symptoms have markedly improved after treatment. cp3 ED course: pain improved with morphine im and lidocaine cream. Administered Medications: 07:30 Drug: morphine IM 4 mg IM once Route: IM; Site: left deltoid; rs5 08:10 Follow up: Response: No adverse reaction; Pain is decreased rs5 07:30 Drug: Ondansetron PO 4 mg PO once Route: PO; rs5 08:10 Follow up: Response: No adverse reaction rs5 07:30 Drug: Lidocaine Mucous Membrane Gel 2 % 1 application Mucous Membrane once; to rs5 hemorrhoid Route: Mucous Membrane; 08:10 Follow up: Response: No adverse reaction rs5 Disposition Summary: 08/14/23 08:40 Discharge Ordered Notes: Location: Home cp3 Condition: Stable cp3 Diagnosis - Second degree hemorrhoids cp3 Followup: cp3 - With: Juan Maddox MD - When: As needed - Reason: Re-evaluation by your physician Discharge Instructions: - Discharge Summary Sheet cp3 - Hemorrhoids cp3 Forms: - Medication Reconciliation Form cp3 - Thank You Letter cp3 - Antibiotic Education cp3 - Prescription Opioid Use cp3 - Patient Portal Instructions cp3 - Leadership Thank You Letter cp3 Prescriptions: - tylenol 3 - take 1 tablet ORAL route every 6 to 8 hours 1 tab po q6-8 hours prn severe cp3 pain; 12 tablet; Refills: 0, Product Selection Permitted - Anusol-HC 25 mg Rectal Suppository - insert 1 suppository RECTAL route every 12 hours As needed; 20 suppository; cp3 Refills: 0, Product Selection Permitted - Cyclobenzaprine 5 mg Oral Tablet - take 1 tablet ORAL route 3 times per day As needed; 15 tablet; Refills: 0, cp3 Product Selection Permitted Signatures: Micah Rodriguez MD MD cp3 Maria R Laws RN RN pf1 Dakotah Bell RN RN rs5
[2023-08-14 09:09] VITALS: BP 133/75; TEMP 98.1; O2SAT 99
== END ==
LOC: ER 05:55
DX: K64.1 Second degree hemorrhoids (principal)
CPT/HCPCS: 96372; 99284; Q0162

== ENCOUNTER 2024-04-27 02:06 | Emergency (ER) | payer SELFPAY ==
--- OUTSIDE RECORDS SUMMARY | 2024-04-27 02:09 | XMS REPORT | Continuity of Care Document ---
Author Name Unknown Address [address] [place] [address] [facility] thconnect Address [address] [place] [address] Care Team Providers Care Armor Officer Name Role Phone Dragan Chance MD Attending Clinician DRAGAN CHANCE Attending Clinician Unavailable Allergies, Adverse Reactions, Alerts Allergy Name Allergy Type Status Severity Reaction(s) Onset Date Inactive Date Treating Clinician Comments Source NO KNOWN ALLERGIE S Drug Class Active [facility] Encounters Start Date/Time End Date/Time Encounter Type Admission Type Attending Clinicians Care Facility Care Department Encounter ID Source 2020-02-09 01:36:00 2020-02-09 01:36:00 Emergency X [facility] ERT [id number] [facility] 2020-01-03 21:11:00 2020-01-04 02:40:00 Emergency Dragan Chance [facility] [id number] 2020-01-03 21:11:00 2020-01-03 21:11:00 Emergency X DRAGAN CHANCE [facility] ERT [id number] [facility]
[2024-04-27] MEDS ORDERED: methocarbamoL 500 MG TAB ONE (02:56)
[2024-04-27] MEDS ORDERED: KETOROLAC 30 MG/ML INJ ONE (02:56)
[2024-04-27] MEDS ORDERED: MORPHINE 4 MG/ML SYR ONE (02:57)
[2024-04-27] MEDS ORDERED: MORPHINE 2 MG/ML SYR ONE (02:57)
[2024-04-27 03:42] LABS: Absolute Basophils 0.2 K/uL (0-0.5); Absolute Eosinophils 0.5 K/uL (0-0.5); Absolute Monocytes 1.2 K/uL (0.1-1.3); Absolute Neutrophil 11.2 K/uL (1.8-8.0); Basophils % 1.4 % (0-1.3); Eosinophils % 3.1 % (0-4.4); Hemoglobin 15.5 g/dL (13.6-17.9); Lymphocytes % 18.7 % (15.3-44.8); MCH 31.1 pg (27.0-35.0); MCHC 33.6 g/dL (32.0-36.0); MCV 92.6 fL (80-100); MPV 9.6 fL (7.6-11.3); Monocytes % 7.3 % (3.3-12.3); Neutrophils % 69.5 % (41.7-73.7); Platelets 221 thou/uL (152-406); RBC Red Blood Cell Count 4.97 M/uL (4.33-5.43); Red Cell Distribution Width 13.9 % (12.1-15.2)
--- NOTE | 2024-04-27 04:21 | RAD REPORT ---
EXAM: CT Chest, Abdomen and Pelvis Without Intravenous Contrast CLINICAL HISTORY: Right chest pain. TECHNIQUE: Axial computed tomography images of the chest, abdomen and pelvis without intravenous contrast. Sag ittal and coronal reformatted images were created and reviewed. This CT exam was performed using one or more of the following dose reduction techniques: automated exposure control, adjustment of t he mA and/or kV according to patient size, and/or use of iterative reconstruction technique. COMPARISON: CT Chest abdomen pelvis 02/08/2020. FINDINGS: CHEST: Lungs: Centrilobular emphysema with an upper lobe predominance. Scattered bilateral subsegmental atelectasis/pleural parenchymal scar. No mass. Pleural space: Unremarkable. No significant effusion. No pneumothorax. Heart: Coronary artery calcification. No cardiomegaly. No significant pericardial effusion. ABDOMEN: Liver: Unremarkable. Gallbladder and bile ducts: Unremarkable. No calcified stones. No ductal dilation. Pancreas: Unremarkable. No ductal dilation. Spleen: Unremarkable. No splenomegaly. Adrenals: Unremarkable. No mass. Kidneys and ureters: Unremarkable. No obstructing stones. No hydronephrosis. Stomach and bowel: Intramural fat within portions of the large bowel which can be seen in the setti ng of prior inflammation. Colonic diverticula without adjacent inflammatory change. No bowel obstruction. No mucosal thickening. PELVIS: Appendix: Normal caliber appendix. No findings to suggest acute appendicitis. Bladder: Unremarkable. No stones. Reproductive: The prostate is mildly enlarged. CHEST, ABDOMEN and PELVIS: Intraperitoneal space: Unremarkable. No significant fluid collection. No free air. Bones/joints: Remote left ninth and 10th rib fractures. Multilevel spondylosis. No acute fractu re. No dislocation. Soft tissues: Bilateral gynecomastia. Small left inguinal hernia containing a knuckle of large errol l. Vasculature: Mild atherosclerotic disease. No aortic aneurysm. Lymph nodes: Unremarkable. No enlarged lymph nodes. IMPRESSION: 1. No acute abnormality identified within the chest, abdomen and pelvis. 2. Other findings as above. Electronically signed by: Jeannie Andrew MD 04/27/2024 03:57 AM [facility] Due to temporary technical issues with the PACS/InhibOx reporting system, reports are being samson d by the in-house radiologist without review as a courtesy to ensure prompt reporting the interpreting radiologist is fully responsible for the content of the report. Transcribed Date/Time: 04/27/2024 4:21 AM
[2024-04-27 04:35] LABS: Anion Gap 10.2 mEq/L (5.0-15.0); Potassium 4.2 mEq/L (3.5-5.1)
[2024-04-27] MEDS ORDERED: HYDROCODONE/APAP 5/325 MG TAB ONE (07:09)
--- NOTE | 2024-04-27 07:13 | EDPHYS ---
Physician Documentation [facility] Name: Tyler Carson Age: 53 yrs Sex: Male : 1970 Arrival Date: 04/27/2024 Time: 02:06 Bed 6 Private MD: ED Physician Jorge Alberto Payne HPI: 04/27 02:29 This 53 yrs old Male presents to ER via Ambulatory with complaints of Fall sp4 Injury, Breathing Difficulty. 04/28 01:26 53 -year-old male presents after falling off the stool causing right sided chest wall sp4 injury.. Historical: - Allergies: 04/27 02:23 No Known Allergies; ha1 - Home Meds: 02:23 clopidogrel 75 mg Oral tablet [Active]; escitalopram oxalate 10 mg Oral tablet daily ha1 [Active]; rosuvastatin 40 mg Oral tablet daily [Active]; losartan 25 mg Oral tablet daily [Active]; nitroglycerin 0.4 mg SL Tablet [Active]; - PMHx: 02:23 Anxiety; hemorrhoids; Hypercholesterolemia; Myocardial infarction; Hypertension; ha1 - PSHx: 02:23 cardiac stents; ha1 - Immunization history:: Adult Immunizations up to date. - Infectious Disease History:: Denies. - Immunization history: Last tetanus immunization: - up to date. - Social history:: Smoking status: Patient reports the use of cigarette tobacco products, smokes one pack cigarettes per day. - Family history:: not pertinent. ROS: 04/28 01:26 Constitutional: Negative for fever, chills, and weight loss, Eyes: Negative for injury, sp4 pain, redness, and discharge, ENT: Negative for injury, pain, and discharge, Neck: Negative for injury, pain, and swelling, Respiratory: Positive right-sided chest wall pain. All other systems are negative, Exam: 01:26 Constitutional: This is a well developed, well nourished patient who is awake, alert, sp4 positive for discomfort secondary to pain Head/Face: Normocephalic, atraumatic. Eyes: Pupils equal round and reactive to light, extra-ocular motions intact. Lids and lashes normal. Conjunctiva and sclera are not injected. Cornea within normal limits. Periorbital areas with no swelling, redness, or edema. ENT: Nares patent. No nasal discharge, no septal abnormalities noted. Tympanic membranes are normal and external auditory canals are clear. Oropharynx with no redness, swelling, or masses, exudates, or evidence of obstruction, uvula midline. Mucous membranes moist. Neck: Trachea midline, no thyromegaly or masses palpated, and no cervical lymphadenopathy. Supple, full range of motion without nuchal rigidity, or vertebral point tenderness. Chest/axilla: Normal chest wall appearance and motion. Nontender with no deformity. No lesions are appreciated. Cardiovascular: Regular rate and rhythm with a normal S1 and S2. No gallops, murmurs, or rubs. Normal PMI, no JVD. No pulse deficits. Respiratory: Lungs have equal breath sounds bilaterally, clear to auscultation and percussion. No rales, rhonchi or wheezes noted. No increased work of breathing, no retractions or nasal flaring. Abdomen/GI: Soft, with normal bowel sounds. No distension or tympany. No guarding or rebound. No evidence of tenderness throughout. Back: No spinal tenderness. No costovertebral tenderness. Skin: Warm, dry with normal turgor. Normal color with no rashes, no lesions, and no evidence of cellulitis. MS/ Extremity: Pulses equal, no cyanosis. Neurovascular intact. Full, normal range of motion. Neuro: Awake and alert, GCS 15, oriented to person, place, time, and situation. Cranial nerves II-XII grossly intact. Motor strength 5/5 in all extremities. Sensory grossly intact. Psych: Awake, alert, with orientation to person, place and time. Behavior, mood, and affect are within normal limits Vital Signs: 04/27 02:05 BP 119 / 83; Pulse 91; Resp 18 S; Temp 98; Pulse Ox 97% on R/A; Weight 80.74 kg; Height ha1 5 ft. 7 in. ; 02:20 BP 140 / 83; Pulse 88; Resp 17; Pulse Ox 95% on R/A; al5 02:30 BP 140 / 85; Pulse 76; Resp 18; Pulse Ox 95% on R/A; al5 03:00 BP 135 / 85; Pulse 96; Resp 18; Pulse Ox 96% on R/A; al5 05:36 BP 132 / 90; Pulse 64; Resp 17; Pulse Ox 96% on R/A; al5 05:45 BP 156 / 79; Pulse 51; Resp 18; Pulse Ox 94% on R/A; al5 06:00 BP 132 / 80; Pulse 53; Resp 17; Pulse Ox 96% on R/A; al5 07:15 BP 112 / 88; Pulse 58; Resp 16; Pulse Ox 97% ; bp 02:05 Body Mass Index 27.88 (80.74 kg, 170.18 cm) ha1 [place] Coma Score: 04:45 Eye Response: spontaneous(4). Motor Response: obeys commands(6). Verbal Response: al5 oriented(5). Total: 15. 04/28 01:26 Eye Response: spontaneous(4). Motor Response: obeys commands(6). Verbal Response: sp4 oriented(5). Total: 15. Trauma Score (Adult): 04/27 04:45 Eye Response: spontaneous(1); Verbal Response: oriented(1); Motor Response: obeys al5 commands(2); Systolic BP: > 89 mm Hg(4); Respiratory Rate: 10 to 29 per min(4); [place] Score: 15; Trauma Score: 12 MDM: 02:31 Medical Screening Exam initiated sp4 06:38 ED course: EXAM: CT Chest, Abdomen and Pelvis Without Intravenous Contrast CLINICAL sp4 HISTORY: Right chest pain. TECHNIQUE: Axial computed tomography images of the chest, abdomen and pelvis without intravenous contrast. Sagittal and coronal reformatted images were created and reviewed. This CT exam was performed using one or more of the following dose reduction techniques: automated exposure control, adjustment of the mA and/or kV according to patient size, and/or use of iterative reconstruction technique. COMPARISON: CT Chest abdomen pelvis 02/08/2020. FINDINGS: CHEST: Lungs: Centrilobular emphysema with an upper lobe predominance. Scattered bilateral subsegmental atelectasis/pleural parenchymal scar. No mass. Pleural space: Unremarkable. No significant effusion. No pneumothorax. Heart: Coronary artery calcification. No cardiomegaly. No significant pericardial effusion. ABDOMEN: Liver: Unremarkable. Gallbladder and bile ducts: Unremarkable. No calcified stones. No ductal dilation. Pancreas: Unremarkable. No ductal dilation. Spleen: Unremarkable. No splenomegaly. Adrenals: Unremarkable. No mass. Kidneys and ureters: Unremarkable. No obstructing stones. No hydronephrosis. Stomach and bowel: Intramural fat within portions of the large bowel which can be seen in the setting of prior inflammation. Colonic diverticula without adjacent inflammatory change. No bowel obstruction. No mucosal thickening. PELVIS: Appendix: Normal caliber appendix. No findings to suggest acute appendicitis. Bladder: Unremarkable. No stones. Reproductive: The prostate is mildly enlarged. CHEST, ABDOMEN and PELVIS: Intraperitoneal space: Unremarkable. No significant fluid collection. No free air. Bones/joints: Remote left ninth and 10th rib fractures. Multilevel spondylosis. No acute fracture. No dislocation. Soft tissues: Bilateral gynecomastia. Small left inguinal hernia containing a knuckle of large bowel. Vasculature: Mild atherosclerotic disease. No aortic aneurysm. Lymph nodes: Unremarkable. No enlarged lymph nodes. IMPRESSION: 1. No acute abnormality identified within the chest, abdomen and pelvis. 2. Other findings as above. Electronically signed by: Jeannie Andrew MD 04/27/2024 03:57 AM . 04/28 01:26 Differential diagnosis: abrasion, closed head injury, contusion, fracture, laceration, sp4 multiple trauma. Data reviewed: vital signs, nurses notes, radiologic studies, CT scan. 04/27 02:30 Order name: Basic Metabolic Panel; Complete Time: 06:29 sp4 04/27 02:30 Order name: CBC with Diff; Complete Time: 06:29 sp4 04/27 02:30 Order name: Type And Screen; Complete Time: 06:29 sp4 04/27 02:31 Order name: CT Chest Abdomen Pelvis W/O Contrast sp4 04/27 02:30 Order name: Labs collected and sent; Complete Time: 02:47 sp4 Administered Medications: 04/27 03:14 Drug: morphine IVP or IV 6 mg IVP once over 4 mins Route: IVP; Infused Over: 4 mins; jb4 Site: right antecubital; 07:16 Follow up: Response: No adverse reaction bp 03:14 Drug: Ketorolac IVP 30 mg IVP once Route: IVP; Site: right antecubital; jb4 07:16 Follow up: Response: No adverse reaction bp 03:14 Drug: Methocarbamol PO 1500 mg PO once Route: PO; jb4 07:16 Follow up: Response: No adverse reaction bp 07:16 Drug: HYDROcodone-acetaminophen PO 5 mg-325 mg 2 tabs PO once Route: PO; bp 07:16 Follow up: Response: No adverse reaction bp Disposition: 04/28 01:29 Chart complete. sp4 Disposition Summary: 04/27/24 07:12 Discharge Ordered Notes: Location: Home sp4 Problem: new sp4 Symptoms: have improved sp4 Condition: Stable sp4 Diagnosis - Acute fall at home, acute right chest wall contusion sp4 Followup: sp4 - With: Private Physician - When: 7 - 10 days - Reason: Recheck today's complaints Discharge Instructions: - Discharge Summary Sheet sp4 - Chest Contusion, Adult, Uile-vg-Oryr sp4 Forms: - Patient Portal Instructions sp4 Prescriptions: - acetaminophen-codeine 300-60 mg Oral tablet - take 1 tablet ORAL route every 8 hours PRN pain; 20 tablet; Refills: 0, Product sp4 Selection Permitted - Ibuprofen 800 mg Oral Tablet - take 1 tablet ORAL route every 8 hours As needed take with food; 30 tablet; sp4 Refills: 0, Product Selection Permitted - methocarbamol 750 mg Oral tablet - take 2 tablet ORAL route every 8 hours for 3 days PRN muscle soreness; 60 sp4 tablet; Refills: 0, Product Selection Permitted Signatures: Dispatcher [employer] EDWoody Crockett, RN RN jb4 Omer Mayfield RN RN bp Fatimah Guido RN RN ha1 Jorge Alberto Payne MD MD sp4 Karon White RN RN al5 Corrections: (The following items were deleted from the chart) 04/27 02:31 02:31 BASIC METABOLIC PANEL+C.LAB.BRZ ordered. EDMS EDMS 02: 02:31 CBC+H.LAB.BRZ ordered. EDMS EDMS 02:31 02:31 TYPE AND SCREEN+BB.LAB.BRZ ordered. EDMS EDMS
--- NOTE | 2024-04-27 07:13 | ER ---
Nurse's Notes [facility] Name: Tyler Carson Age: 53 yrs Sex: Male : 1970 Arrival Date: 04/27/2024 Time: 02:06 Bed 6 Private MD: Diagnosis: Acute fall at home, acute right chest wall contusion Presentation: 04/27 02:05 Chief complaint: Patient states: FELL OFF A CHAIR AND HIT MY CHEST, I THINK I MIGHT ha1 HAVE BROKEN SOMETHING. THE PAIN IS SO BAD BAD THAT IT CAUSES DIFFICULTY TO BREATH. 02:05 Coronavirus screen: At this time, the client does not indicate any symptoms associated ha1 with coronavirus-19. Ebola Screen: No symptoms or risks identified at this time. Initial Sepsis Screen: Does the patient meet any 2 criteria? No. Patient's initial sepsis screen is negative. Does the patient have a suspected source of infection? No. Patient's initial sepsis screen is negative. Risk Assessment: Do you want to hurt yourself or someone else? Patient reports no desire to harm self or others. Onset of symptoms was April 27, 2024. 02:05 Method Of Arrival: Ambulatory ha1 02:05 Acuity: NISH 3 ha1 04:45 Care prior to arrival: None. Mechanism of Injury: Fall out of chair. Trauma event al5 details: Injury occurred in the [facility], Injury occurred: at home. Injury occurred: April 27, 2024. Triage Assessment: 02:15 General: Appears comfortable, Behavior is cooperative. Pain: Complains of pain in CHEST ha1 WHEN BREATHING Pain does not radiate. Pain currently is 10 out of 10 on a pain scale. Neuro: Level of Consciousness is awake, alert, obeys commands, Oriented to person, place, time, situation. Cardiovascular: Capillary refill < 3 seconds Patient's skin is warm and dry. Respiratory: Airway is patent Respiratory effort is even, unlabored, Respiratory pattern is regular, symmetrical. Trauma Activation: Physician: ED Physician; Name: ; Notified At: ; Arrived At: Physician: General Surgeon; Name: ; Notified At: ; Arrived At: Physician: Radiology; Name: ; Notified At: ; Arrived At: Physician: Respiratory; Name: ; Notified At: ; Arrived At: Physician: Lab; Name: ; Notified At: ; Arrived At: 04:45 n/a al5 Historical: - Allergies: 02:23 No Known Allergies; ha1 - Home Meds: 02:23 clopidogrel 75 mg Oral tablet [Active]; escitalopram oxalate 10 mg Oral tablet daily ha1 [Active]; rosuvastatin 40 mg Oral tablet daily [Active]; losartan 25 mg Oral tablet daily [Active]; nitroglycerin 0.4 mg SL Tablet [Active]; - PMHx: 02:23 Anxiety; hemorrhoids; Hypercholesterolemia; Myocardial infarction; Hypertension; ha1 - PSHx: 02:23 cardiac stents; ha1 - Immunization history:: Adult Immunizations up to date. - Infectious Disease History:: Denies. - Immunization history: Last tetanus immunization: - up to date. - Social history:: Smoking status: Patient reports the use of cigarette tobacco products, smokes one pack cigarettes per day. - Family history:: not pertinent. Screenin:45 [facility] ED Fall Risk Assessment (Adult) History of falling in the last 3 months, al5 including since admission Yes- single mechanical fall (1 pt) Confusion or Disorientation No (0 pts) Intoxicated or Sedated No (0 pts) Impaired Gait No (0 pts) Mobility Assist Device Used No (0 pt) Altered Elimination No (0 pt) Score/Fall Risk Level 0 - 2 = Low Risk Oriented to surroundings, Maintained a safe environment, Hourly rounding (assess needs \T\ fall precautionary measures) done. Abuse screen: Denies threats or abuse. Denies injuries from another. Nutritional screening: No deficits noted. Tuberculosis screening: No symptoms or risk factors identified. Primary Survey: 04:45 NO uncontrolled hemorrhage observed. A: The client is awake and alert. The airway is al5 patent. The client is alert. Airway: patent. Breathing/Chest: Spontaneous respiratory effort, equal unlabored respirations, breath sounds clear bilaterally, regular pattern, symmetrical chest rise and fall. Respiratory effort: spontaneous, unlabored. Circulation: No external hemorrhage present. Regular and strong central pulse, skin warm/dry/normal color. Disability Pupils are equal, round, reactive to light and accommodation. Client is alert. Exposure/Environment: There is no evidence of uncontrolled external bleeding. No obvious injuries are noted at this time. A warming method has been applied: A warm blanket has been provided to the patient. 06:22 Reassessment Alertness and Airway: Awake and alert. The airway is patent. Airway Patent al5 Breathing: Spontaneous respiratory effort, equal unlabored respirations, breath sounds clear bilaterally, regular pattern with symmetrical chest rise and fall. Respiratory effort Spontaneous Unlabored Circulation: No external hemorrhage noted. Regular and strong central pulse, skin warm/dry/normal color. Disability: Pupils Pupils are equal, round, reactive to light and accomodation. Alert. Assessment: 03:14 General: Appears in no apparent distress. comfortable. Pain: Complains of pain in right jb4 lateral anterior chest Pain does not radiate. Pain currently is 10 out of 10 on a pain scale. Neuro: Level of Consciousness is awake, Oriented to person, place, time, situation. Cardiovascular: Patient's skin is warm and dry. Respiratory: Airway is patent Respiratory effort is even, unlabored, Respiratory pattern is regular, symmetrical. Derm: Skin is intact, Skin is pink, warm \T\ dry. Musculoskeletal: Circulation, motion, and sensation intact. Range of motion: intact in all extremities. 04:45 General: Appears in no apparent distress. uncomfortable, Behavior is calm, cooperative. al5 Pain: Complains of pain in right lateral anterior chest. Neuro: Level of Consciousness is awake, alert, obeys commands, Oriented to person, place, time, situation. Cardiovascular: Capillary refill < 3 seconds Patient's skin is warm and dry. Respiratory: Airway is patent Respiratory effort is even, unlabored, Respiratory pattern is regular, symmetrical. GI: No signs and/or symptoms were reported involving the gastrointestinal system. : No signs and/or symptoms were reported regarding the genitourinary system. EENT: No signs and/or symptoms were reported regarding the EENT system. Derm: Skin is intact, is healthy with good turgor, Skin is pink, warm \T\ dry. normal. Musculoskeletal: Range of motion: intact in all extremities, Reports pain in right lateral anterior chest. 06:09 Reassessment: Patient appears in no apparent distress at this time. No changes from al5 previously documented assessment. Patient and/or family updated on plan of care and expected duration. Pain level reassessed. Patient is alert, oriented x 3, equal unlabored respirations, skin warm/dry/pink. Vital Signs: 02:05 BP 119 / 83; Pulse 91; Resp 18 S; Temp 98; Pulse Ox 97% on R/A; Weight 80.74 kg; Height ha1 5 ft. 7 in. ; 02:20 BP 140 / 83; Pulse 88; Resp 17; Pulse Ox 95% on R/A; al5 02:30 BP 140 / 85; Pulse 76; Resp 18; Pulse Ox 95% on R/A; al5 03:00 BP 135 / 85; Pulse 96; Resp 18; Pulse Ox 96% on R/A; al5 05:36 BP 132 / 90; Pulse 64; Resp 17; Pulse Ox 96% on R/A; al5 05:45 BP 156 / 79; Pulse 51; Resp 18; Pulse Ox 94% on R/A; al5 06:00 BP 132 / 80; Pulse 53; Resp 17; Pulse Ox 96% on R/A; al5 07:15 BP 112 / 88; Pulse 58; Resp 16; Pulse Ox 97% ; bp 02:05 Body Mass Index 27.88 (80.74 kg, 170.18 cm) ha1 Mariel Coma Score: 04:45 Eye Response: spontaneous(4). Motor Response: obeys commands(6). Verbal Response: al5 oriented(5). Total: 15. 04/28 01:26 Eye Response: spontaneous(4). Motor Response: obeys commands(6). Verbal Response: sp4 oriented(5). Total: 15. Trauma Score (Adult): 04/27 04:45 Eye Response: spontaneous(1); Verbal Response: oriented(1); Motor Response: obeys al5 commands(2); Systolic BP: > 89 mm Hg(4); Respiratory Rate: 10 to 29 per min(4); Mariel Score: 15; Trauma Score: 12 ED Course: 02:09 Patient arrived in ED. gm2 02:23 Triage completed. ha1 02:28 Jorge Alberto Payne MD is Attending Physician. sp4 02:47 Basic Metabolic Panel Sent. ha1 02:47 CBC with Diff Sent. ha1 03:01 Basic Metabolic Panel Sent. jb4 03:01 CBC with Diff Sent. jb4 03:10 CT Chest Abdomen Pelvis W/O Contrast In Process Unspecified. EDMS 03:14 Type And Screen Sent. jb4 04:44 Arm band placed on right wrist. Patient placed in the treatment room, on a stretcher. al5 04:45 No provider procedures requiring assistance completed. al5 04:45 Patient maintains SpO2 saturation greater than 95% on room air. Thermoregulation: warm al5 blanket given to patient. 04:45 Patient has correct armband on for positive identification. Bed in low position. Call al5 light in reach. Side rails up X 1. Provided Education on: plan of care. 06:13 Karon White, RN is Primary Nurse. al5 07:27 IV discontinued, intact, bleeding controlled, No redness/swelling at site. Pressure bp dressing applied. Administered Medications: 03:14 Drug: morphine IVP or IV 6 mg IVP once over 4 mins Route: IVP; Infused Over: 4 mins; jb4 Site: right antecubital; 07:16 Follow up: Response: No adverse reaction bp 03:14 Drug: Ketorolac IVP 30 mg IVP once Route: IVP; Site: right antecubital; jb4 07:16 Follow up: Response: No adverse reaction bp 03:14 Drug: Methocarbamol PO 1500 mg PO once Route: PO; jb4 07:16 Follow up: Response: No adverse reaction bp 07:16 Drug: HYDROcodone-acetaminophen PO 5 mg-325 mg 2 tabs PO once Route: PO; bp 07:16 Follow up: Response: No adverse reaction bp Medication: 04:45 VIS not applicable for this client. al5 Intake: 04:45 n/a al5 Outcome: 07:12 Discharge ordered by . sp4 07:27 Discharged to home ambulatory, bp 07:27 Condition: stable 07:27 Discharge instructions given to patient, Instructed on discharge instructions, follow up and referral plans. medication usage, Demonstrated understanding of instructions, follow-up care, medications, Prescriptions given X 3, 07:27 Patient's length of stay in the Emergency Department was greater than 2 hours. bp 07:28 Patient left the ED. bp Signatures: Dispatcher [employer] EDMS Woody Ramirez RN RN jb4 Omer Mayfield RN RN bp Fatimah Guido RN RN Jorge Alberto Rios MD MD sp4 Kiana Hernadez gm2 Karon White RN RN al5
[2024-04-27 07:44] VITALS: BP 112/88; O2SAT 97
== END 2024-04-27 07:28 | disposition home or self-care (01) ==
LOC: ER 02:06
DX: S20.211A Contusion of right front wall of thorax, initial encounter (principal); W08.XXXA Fall from other furniture, initial encounter; Y92.009 Unspecified place in unspecified non-institutional (private) residence as the place of occurrence of the external cause
CPT/HCPCS: 36415; 71250; 74176; 80048; 85025; 86850; 86900; 86901; 96374; 96375; 99284; J2270

== ENCOUNTER 2024-08-14 14:21 | Emergency (ER) | payer SELFPAY ==
--- OUTSIDE RECORDS SUMMARY | 2024-08-14 14:24 | XMS REPORT | Continuity of Care Document ---
Author Name Unknown Address [address] [place] [address] [facility] [place] Address [address] [place] [address] Care Team Providers Care [employer] Technician Name Role Phone Dragan Chance MD Attending Clinician DRAGAN CHANCE Attending Clinician Unavailable Allergies, Adverse Reactions, Alerts Allergy Name Allergy Type Status Severity Reaction(s) Onset Date Inactive Date Treating Clinician Comments Source NO KNOWN ALLERGIE S Drug Class Active [facility] Encounters Start Date/Time End Date/Time Encounter Type Admission Type Attending Clinicians Care Facility Care Department Encounter ID Source 2020-02-09 01:36:00 2020-02-09 01:36:00 Emergency X [facility] ERT [id number] [facility] 2020-01-03 21:11:00 2020-01-04 02:40:00 Emergency Dragan Chance [facility] [id number] 2020-01-03 21:11:00 2020-01-03 21:11:00 Emergency X DRAGAN CHANCE [facility] ERT [id number] [facility]
[2024-08-14 15:06] LABS: Absolute Basophils 0.2 K/uL (0-0.5); Absolute Eosinophils 0.4 K/uL (0-0.5); Absolute Lymphocytes (CBC) 3.2 K/uL (0.7-4.9); Absolute Monocytes 1.6 K/uL (0.1-1.3); Eosinophils % 2.2 % (0-4.4); Hematocrit 48.4 % (39.6-49.0); Hemoglobin 16.7 g/dL (13.6-17.9); Lymphocytes % 16.7 % (15.3-44.8); MCH 31.6 pg (27.0-35.0); MCHC 34.5 g/dL (32.0-36.0); MCV 91.5 fL (80-100); MPV 9.2 fL (7.6-11.3); Monocytes % 8.4 % (3.3-12.3); Neutrophils % 71.7 % (41.7-73.7); Platelets 244 thou/uL (152-406); RBC Red Blood Cell Count 5.29 M/uL (4.33-5.43); Red Cell Distribution Width 13.2 % (12.1-15.2)
--- NOTE | 2024-08-14 15:08 | RAD REPORT ---
EXAM: Chest Single View HISTORY: 53 years Male CHEST PAIN COMPARISON: CT 04/21/2024 FINDINGS: LUNGS/PLEURA: The lungs are clear. No pleural effusions or pneumothorax. No pulmonary edema. CARDIAC/MEDIASTINUM: The cardiac silhouette is within normal limits. UPPER ABDOMEN: No significant abnormality. BONES: No acute abnormality. Subacute or chronic right lateral eighth and ninth rib fractures LINES/TUBES/OTHER: N/A IMPRESSION: No evidence of acute cardiopulmonary disease.
[2024-08-14 15:23] LABS: Anion Gap 7.3 mEq/L (5.0-15.0); Magnesium 2.3 mg/dL (1.6-2.4); Potassium 4.3 mEq/L (3.5-5.1)
[2024-08-14] MEDS ORDERED: ASPIRIN 81 MG CHEWABLE TABLET ONE (15:34)
[2024-08-14] MEDS ORDERED: HEPARIN 5000 UNIT/ML 1 ML VIAL ONE (15:49)
[2024-08-14] MEDS ORDERED: HEPARIN/D5W 25,000 UNIT/500 ML BAG IV ONE (15:49)
--- NOTE | 2024-08-14 15:57 | EDPHYS ---
Physician Documentation [facility] Name: Tyler Carson Age: 53 yrs Sex: Male : 1970 Arrival Date: 08/14/2024 Time: 14:21 Bed 2 Private MD: ED Physician Jerry Cheatham HPI: 08/14 14:45 This 53 yrs old Male presents to ER via Ambulatory with complaints of Chest Pain, Arm ms3 Pain, Shoulder Pain, Headache. 14:45 53-year-old male with past medical history of anxiety, hemorrhoids, ms3 hypercholesterolemia, hypertension, myocardial infarction presents to the emergency department for chest pain that has been intermittent for 3 weeks. Patient states pain became severe last night. He rates the pain a 7/10 and describes the feeling as indigestion. Patient states a hot shower improves his symptoms. Patient states eating the wrong foods makes his symptoms worse. Patient endorses shortness of breath and nausea. He denies sweating or vomiting.. Historical: - Allergies: 14:32 No Known Allergies; ss - PMHx: 14:32 Anxiety; hemorrhoids; Hypercholesterolemia; Hypertension; Myocardial infarction; ss - PSHx: 14:32 cardiac stents; ss - Immunization history:: Adult Immunizations up to date. - Social history:: Smoking status: Patient reports the use of cigarette tobacco products, smokes one pack cigarettes per day. ROS: 14:45 Constitutional: Negative for fever, and chills. ms3 14:45 MS/Extremity: Negative for injury and deformity, Skin: Negative for injury, rash, and discoloration, 14:45 Cardiovascular: Positive for chest pain, 14:45 Respiratory: Positive for shortness of breath, 14:45 Abdomen/GI: Positive for nausea, Exam: 14:45 Constitutional: This is a well developed, well nourished patient who is awake, alert, ms3 and in no acute distress. Cardiovascular: Regular rate and rhythm with a normal S1 and S2. No gallops, murmurs, or rubs. Normal PMI, no JVD. No pulse deficits. Respiratory: Lungs have equal breath sounds bilaterally, clear to auscultation and percussion. No rales, rhonchi or wheezes noted. No increased work of breathing, no retractions or nasal flaring. Abdomen/GI: Soft, non-tender, with normal bowel sounds. No distension or tympany. No guarding or rebound. No evidence of tenderness throughout. Skin: Warm, dry with normal turgor. Normal color with no rashes, no lesions, and no evidence of cellulitis. 14:45 ECG was reviewed by the Attending Physician. ms3 16:23 ECG was reviewed by the Attending Physician. ms3 Vital Signs: 14:41 BP 188 / 124; Pulse 89; Resp 18; Temp 98.7; Pulse Ox 100% ; Weight 74.84 kg; Height 5 ll1 ft. 6 in. ; Pain 7/10; 15:45 BP 178 / 102; Pulse 79; Resp 15; Pulse Ox 99% ; cm10 16:00 BP 167 / 110; Pulse 76; Resp 15; Pulse Ox 99% on R/A; cm10 16:15 BP 174 / 118; Pulse 75; Resp 15; Pulse Ox 98% on R/A; cm10 16:30 BP 173 / 118; Pulse 79; Resp 15; Pulse Ox 98% ; cm10 16:45 BP 157 / 98; Pulse 77; Resp 15; Pulse Ox 96% on R/A; cm10 17:47 BP 164 / 110; Pulse 73; Resp 15; Pulse Ox 97% on R/A; cm10 14:41 Body Mass Index 26.63 (74.84 kg, 167.64 cm) ll1 14:41 Pain Scale: Adult ll1 MDM: 14:44 Medical Screening Exam initiated ms3 14:45 Differential diagnosis: abnormal EKG, acute myocardial infarction, anxiety, coronary ms3 artery disease chest wall pain. 15:48 The patient was given aspirin in the Emergency Department. Data reviewed: vital signs, ms3 nurses notes, lab test result(s), EKG, radiologic studies, and as a result, I will transfer patient. Consideration of Admission/Observation Patient transferred. Management of patient was discussed with the following: Hospitality Job Titles: Dr Abbasi- Recommends transfer to facility with cathead worker available. I considered the following discharge prescriptions or medication management in the emergency department Medications were administered in the Emergency Department. See MAR. Independent interpretation of the following test(s) in the Emergency Department EKG: See my EKG interpretation above. Counseling: I had a detailed discussion with the patient and/or guardian regarding the historical points, exam findings, and any diagnostic results supporting the discharge/admit diagnosis, lab results, radiology results, the need to transfer to another facility. 08/14 14:37 Order name: Basic Metabolic Panel; Complete Time: 15:33 ms3 08/14 14:37 Order name: CBC with Diff; Complete Time: 15:09 ms3 08/14 14:37 Order name: Magnesium; Complete Time: 15:33 ms3 08/14 14:37 Order name: Troponin HS; Complete Time: 15:33 ms3 08/14 15:57 Order name: PT-INR ms3 08/14 15:57 Order name: Ptt, Activated 3 08/14 14:37 Order name: XRAY Chest (1 view); Complete Time: 15:09 ms3 08/14 14:34 Order name: EKG; Complete Time: 14:34 ss 08/14 14:34 Order name: EKG - Nurse/Tech; Complete Time: 14:34 ss 08/14 14:37 Order name: Cardiac monitoring; Complete Time: 15:31 ms3 08/14 14:37 Order name: IV Saline Lock; Complete Time: 15:30 ms3 08/14 14:37 Order name: Labs collected and sent; Complete Time: 15:30 ms3 08/14 14:37 Order name: O2 Per Protocol; Complete Time: 15:30 ms3 08/14 14:37 Order name: O2 Sat Monitoring; Complete Time: 15:30 ms3 08/14 16:59 Order name: Labs - recollect needed: recollect blue top, draw out of arm without the bd iv; Complete Time: 17:28 EC:45 Rate is 85 beats/min. Rhythm is regular. Left axis deviation noted. VT interval is ms3 normal. QRS interval is normal. Clinical impression: NSR w/ Non-specific ST/T Changes. Interpreted by me. Reviewed by me. 16:23 Rate is 72 beats/min. Rhythm is regular. Left axis deviation noted. VT interval is ms3 normal. QRS interval is normal. Q waves are Present in leads II, III, aVF. Clinical impression: NSR w/ Non-specific ST/T Changes. Administered Medications: 15:44 Drug: Aspirin PO Chewable Tablet 324 mg PO once; 81 mg tablets x 4 Route: PO; cm10 16:14 Follow up: Response: No adverse reaction cm10 15:57 Drug: Heparin ([place]-Bolus No thrombolytic) - HEParin IVP 60 units/kg IVP once; Max 5000 cm10 units {Co-Signature: ld1 (Cristin Cheatham RN).} Route: IVP; Site: left wrist; 16:57 Follow up: Response: No adverse reaction cm10 16:35 Drug: Nitroglycerin Sublingual 0.4 mg Sublingual once Route: Sublingual; ld1 16:58 Follow up: Response: No adverse reaction; Pain is decreased cm10 16:35 Drug: morphine IVP or IV 4 mg IVP once over 4 mins Route: IVP; Infused Over: 4 mins; ld1 Site: left antecubital; 16:58 Follow up: Response: No adverse reaction; Pain is decreased cm10 Disposition: 16:14 Critical Care:. ms3 Disposition Summary: 08/14/24 15:57 Transfer Ordered Notes: Transfer Location: [facility] ms3 Reason: Higher level of care ms3 Condition: Stable ms3 Problem: new ms3 Symptoms: are unchanged ms3 Accepting Physician: Dr Vaughn(08/14/24 17:48) cm10 Diagnosis - Non ST elevation [place] ms3 - Essential (primary) hypertension ms3 Forms: - Medication Reconciliation Form ms3 - SBAR form ms3 Critical care time excluding procedures: 16:14 Critical care time: Bedside Care: 30 minutes, Consultation: 5 minutes. Total time: 35 ms3 minutes Signatures: Dispatcher [employer] EDMegan Bajwa Shelby RN RN Dori Hanson RN RN ll1 Jerry Cheatham DO DO ms3 Cristin Cheatham RN RN ld1 Cheyenne Del Rosario RN RN cm10 Cristin Cheatham RN ld1 Corrections: (The following items were deleted from the chart) 16:33 15:57 Dr velasquez ms3 17:48 16:33 Dr Vaughn msAmy cm10
--- NOTE | 2024-08-14 15:57 | ER ---
Nurse's Notes [facility] Name: Tyler Carson Age: 53 yrs Sex: Male : 1970 Arrival Date: 08/14/2024 Time: 14:21 Bed 2 Private MD: Diagnosis: Non ST elevation AK;Essential (primary) hypertension Presentation: 08/14 14:32 Coronavirus screen: Client denies travel out of the [place] in the last 14 days. At this ss time, the client does not indicate any symptoms associated with coronavirus-19. Ebola Screen: Patient denies travel to an Ebola-affected area in the 21 days before illness onset. Initial Sepsis Screen: Does the patient meet any 2 criteria? No. Patient's initial sepsis screen is negative. Does the patient have a suspected source of infection? No. Patient's initial sepsis screen is negative. Risk Assessment: Do you want to hurt yourself or someone else? Patient reports no desire to harm self or others. 14:32 Method Of Arrival: Ambulatory ss 14:32 Acuity: NISH 2 ss 14:41 Chief complaint: Patient states: CP, KELLEY, shoulder pain. ll1 17:10 Onset of symptoms is unknown. cm10 Triage Assessment: 14:43 General: Appears in no apparent distress. Behavior is calm, cooperative, appropriate ll1 for age. Pain: Complains of pain in chest Quality of pain is described as aching. Neuro: Reports headache. Cardiovascular: Reports chest pain. Musculoskeletal: Reports pain in B shoulder. Historical: - Allergies: 14:32 No Known Allergies; ss - PMHx: 14:32 Anxiety; hemorrhoids; Hypercholesterolemia; Hypertension; Myocardial infarction; ss - PSHx: 14:32 cardiac stents; ss - Immunization history:: Adult Immunizations up to date. - Social history:: Smoking status: Patient reports the use of cigarette tobacco products, smokes one pack cigarettes per day. Screenin:47 [facility] ED Fall Risk Assessment (Adult) History of falling in the last 3 months, cm10 including since admission No falls in past 3 months (0 pts) Confusion or Disorientation No (0 pts) Intoxicated or Sedated No (0 pts) Impaired Gait No (0 pts) Mobility Assist Device Used No (0 pt) Altered Elimination No (0 pt) Score/Fall Risk Level 0 - 2 = Low Risk Oriented to surroundings, Hourly rounding (assess needs \\T\\ fall precautionary measures) done. Abuse screen: Denies threats or abuse. Denies injuries from another. Nutritional screening: No deficits noted. Tuberculosis screening: No symptoms or risk factors identified. Assessment: 15:29 Reassessment: No changes from previously documented assessment. Patient and/or family ss updated on plan of care and expected duration. Pain level reassessed. 16:04 Reassessment: PT COMPLAINING OF BACK PAIN AND STATES "I JUST CANT GET COMFORTABLE." DR. cara ROMO MADE AWARE AND REPEAT EKG COMPLETED. Vital Signs: 14:41 BP 188 / 124; Pulse 89; Resp 18; Temp 98.7; Pulse Ox 100% ; Weight 74.84 kg; Height 5 ll1 ft. 6 in. ; Pain 7/10; 15:45 BP 178 / 102; Pulse 79; Resp 15; Pulse Ox 99% ; cm10 16:00 BP 167 / 110; Pulse 76; Resp 15; Pulse Ox 99% on R/A; cm10 16:15 BP 174 / 118; Pulse 75; Resp 15; Pulse Ox 98% on R/A; cm10 16:30 BP 173 / 118; Pulse 79; Resp 15; Pulse Ox 98% ; cm10 16:45 BP 157 / 98; Pulse 77; Resp 15; Pulse Ox 96% on R/A; cm10 17:47 BP 164 / 110; Pulse 73; Resp 15; Pulse Ox 97% on R/A; cm10 14:41 Body Mass Index 26.63 (74.84 kg, 167.64 cm) ll1 14:41 Pain Scale: Adult ll1 ED Course: 14:23 Patient arrived in ED. im 14:32 Arm band placed on. EKG completed in triage. Results shown to MD. ss 14:33 Triage completed. ss 14:37 Jerry Romo DO is Attending Physician. ms3 14:50 Inserted saline lock: 22 gauge in right antecubital area, using aseptic technique. nh2 Blood collected. Flushed with 10 mL NS. 14:58 XRAY Chest (1 view) In Process Unspecified. EDMS 15:27 Cheyenne Del Rosario, RN is Primary Nurse. cm10 15:29 Notified ED physician of a critical lab result(s). 12, 861 troponin. ss 15:29 Patient placed in an exam room, on a stretcher. ss 15:44 Inserted saline lock: 18 gauge in left wrist, using aseptic technique. Flushed with 10 cm10 mL NS. 16:05 Patient has correct armband on for positive identification. Placed in gown. Bed in low cm10 position. Call light in reach. Side rails up X2. Client placed on continuous cardiac and pulse oximetry monitoring. NIBP monitoring applied. phototypesetting equipment monitor on. 16:05 EKG done, by ED staff, reviewed by Jerry Romo DO. cm10 16:05 Patient maintains SpO2 saturation greater than 95% on room air. cm10 16:08 initiated transfer to [facility]. bd 17:09 pt accepted in transfer to [facility] by dr [place] admin approval given by chuy Hernándezpt going to [facility]. 17:16 Report given to EDEL Doran at [facility]. cm10 17:47 No provider procedures requiring assistance completed. Patient transferred, IV remains cm10 in place. Administered Medications: 15:44 Drug: Aspirin PO Chewable Tablet 324 mg PO once; 81 mg tablets x 4 Route: PO; cm10 16:14 Follow up: Response: No adverse reaction cm10 15:57 Drug: Heparin (AK-Bolus No thrombolytic) - HEParin IVP 60 units/kg IVP once; Max 5000 cm10 units {Co-Signature: ld1 (Cristin Romo RN).} Route: IVP; Site: left wrist; 16:57 Follow up: Response: No adverse reaction cm10 16:35 Drug: Nitroglycerin Sublingual 0.4 mg Sublingual once Route: Sublingual; ld1 16:58 Follow up: Response: No adverse reaction; Pain is decreased cm10 16:35 Drug: morphine IVP or IV 4 mg IVP once over 4 mins Route: IVP; Infused Over: 4 mins; ld1 Site: left antecubital; 16:58 Follow up: Response: No adverse reaction; Pain is decreased cm10 Medication: 17:48 VIS not applicable for this client. cm10 Outcome: 15:57 ER care complete, transfer ordered by MD. velasquez 17:48 Transferred by ground EMS cm10 17:48 Condition: stable 17:48 Discharge instructions given to patient, Instructed on the need for transfer, Demonstrated understanding of instructions, follow-up care, 17:48 Patient left the ED. cm10 Signatures: Dispatcher [employer] EDMS Megan Orellana Shelby, EDEL RN Dori Hanson RN RN ll1 Jerry Romo DO DO ms3 Cristin Romo RN RN ld1 Miesha Lozano Clarissa, RN RN cm10 Evin David, Efe [facility] Cristin Romo RN ld1 Corrections: (The following items were deleted from the chart) 14:44 14:41 BP 188 / 124; Pulse 89bpm; Resp 18bpm; Pulse Ox 100%; Temp 98.7F; Pain 7/10, ll1 Adult; ll1
[2024-08-14] MEDS ORDERED: MORPHINE 4 MG/ML SYR ONE (16:29)
[2024-08-14] MEDS ORDERED: NITROGLYCERIN 0.4 MG/TAB SL ONE (16:29)
[2024-08-14 17:49] LABS: PT Prothrombin Time 12.3 SECONDS (10-13.0); PTT, Activated Partial Thromb 67.6 SECONDS (27.2-37.4); Protime INR 1.08
[2024-08-14 17:59] VITALS: TEMP 98.7
[2024-08-14 18:06] VITALS: BP 164/110; O2SAT 97
--- NOTE | 2024-08-16 12:35 | EKG ---
Test Date: 2024-08-14 Test Time: 16:00:57 Career Technical Supervisor: RABIA MEASUREMENT RESULTS: Intervals: Rate: 72 DE: 160 QRSD: 92 QT: 420 QTc: 459 [place]: P: 70 DE: 160 QRS: -47 T: 124 INTERPRETIVE STATEMENTS: Normal sinus rhythm Left axis deviation Anteroseptal infarct, age undetermined T wave abnormality, consider lateral ischemia Abnormal ECG Compared to ECG 08/14/2024 14:30:27 No significant changes Electronically Signed On 08-16-24 12:26:[address]
--- NOTE | 2024-08-16 12:36 | EKG ---
Test Date: 2024-08-14 Test Time: 14:30:27 Sales Trainee: TRI MEASUREMENT RESULTS: Intervals: Rate: 85 SD: 168 QRSD: 88 QT: 384 QTc: 456 [place]: P: 77 SD: 168 QRS: -52 T: 97 INTERPRETIVE STATEMENTS: Normal sinus rhythm Left axis deviation Possible Inferior infarct, age undetermined Anteroseptal infarct, age undetermined T wave abnormality, consider lateral ischemia Abnormal ECG Compared to ECG 05/27/2023 14:25:07 Myocardial infarct finding now present Possible ischemia now present T-wave abnormality still present Electronically Signed On 08-16-24 12:27:[address]
== END 2024-08-14 17:48 | disposition short-term general hospital (02) ==
LOC: ER 14:21
DX: I21.4 Non-ST elevation (NSTEMI) myocardial infarction (principal); I10 Essential (primary) hypertension
CPT/HCPCS: 36415; 71045; 80048; 83735; 84484; 85025; 85610; 85730; 93005; 99285; J1644